=== PATIENT | male | born 1940 | race Caucasian/White ===

== ENCOUNTER 2016-05-10 07:36 | Emergency (ER) | payer MEDICARE ==
[2016-05-10] MEDS ORDERED: Lidocaine 2% JELLY* 6 ML JELLY TOPICAL ONE ×2 (08:28→08:50)
--- NOTE | 2016-05-10 08:37 | ED ---
GI/ HPI - HPI Summary HPI Summary: Patient presents with the inability to urinate for 5 hours. He is followed by Dr. Saldivar for several urinary issues, including retention. He last urinated early this AM and even then felt he had not completely emptied his bladder. He does not have pain, fever, N/V/D, abdominal or back pain. He currently uses Flomax as per Dr. Saldivar's instruction. - History of Current Complaint Chief Complaint: EDUrogenitalProblems Time Seen by Provider: 05/10/16 07:57 Stated Complaint: POSSIBLE UTI Hx Obtained From: Patient, Family/Family Member Caretaker Onset/Duration: Started Hours Ago Timing: Constant Severity: Moderate Current Severity: Moderate Pain Intensity: 4 Location of Pain: None Aggravating Factor(s): Nothing Alleviating Factor(s): Nothing - Allergy/Home Medications Allergies/Adverse Reactions: Allergies Allergy/AdvReac Type Severity Reaction Status Date / Time No Known Allergies Allergy Verified 05/10/16 07:43 PMH/Surg Hx/FS Hx/Imm Hx Endocrine/Hematology History: Reports: Hx Anticoagulant Therapy Denies: Hx Diabetes Cardiovascular History: Reports: Hx Congestive Heart Failure, Hx Coronary Artery Disease, Hx Hypercholesterolemia, Hx Hypertension Respiratory History: Reports: Hx Chronic Obstructive Pulmonary Disease (COPD) GI History: Reports: Hx Ulcer, Other GI Disorders - exploratory laparotomy with perf colon Musculoskeletal History: Reports: Hx Arthritis, Other Musculoskeletal History - left knee replacement Sensory History: Reports: Hx Contacts or Glasses Opthamlomology History: Reports: Hx Contacts or Glasses - Surgical History Surgery Procedure, Year, and Place: left knee replacemenet, CABG x4, exploratory laparotomy, lysis of adhesions, cholecystectomy, Vidal patch repair of pyloric ulcer Hx Anesthesia Reactions: No Infectious Disease History: Denies: Traveled Outside the [place] in Last 30 Days - Family History Known Family History: Positive: Cardiac Disease, Hypertension - Social History Occupation: Retired Lives: With Family Alcohol Use: None Substance Use Type: Reports: None Hx Tobacco Use: Yes Smoking Status (MU): Former Smoker Review of Systems Negative: Fever, Chills Negative: Abdominal Pain Positive: other - retention Negative: Headache All Other Systems Reviewed And Are Negative: Yes Physical Exam Triage Information Reviewed: Yes Vital Signs On Initial Exam: Initial Vitals Temp Pulse Resp BP Pulse Ox 96.7 F 98 16 157/93 97 05/10/16 07:38 05/10/16 07:38 05/10/16 07:38 05/10/16 07:38 05/10/16 07:38 Vital Signs Reviewed: Yes Appearance: Positive: Well-Appearing, No Pain Distress, Well-Nourished Skin: Positive: Warm, Skin Color Reflects Adequate Perfusion, Dry, Soft Head/Face: Positive: Normal Head/Face Inspection Eyes: Positive: EOMI, CÉSAR, Conjunctiva Clear ENT: Positive: Hearing grossly normal Respiratory/Lung Sounds: Positive: Clear to Auscultation, Breath Sounds Present Cardiovascular: Positive: RRR Abdomen Description: Positive: Nontender, Soft. Negative: CVA Tenderness (R), CVA Tenderness (L), Distended, Guarding Bowel Sounds: Positive: Present Musculoskeletal: Negative: Edema Left, Edema Right Neurological: Positive: Sensory/Motor Intact, Alert, Oriented to Person Place, Time, NV Bundle Intact Distally Psychiatric: Positive: Affect/Mood Appropriate AVPU Assessment: Alert - [place] Coma Scale Coma Scale Total: 15 Diagnostics - Vital Signs Vital Signs Temp Pulse Resp BP Pulse Ox 05/10/16 07:38 96.7 F 98 16 157/93 97 - Laboratory Lab Statement: Any lab studies that have been ordered have been reviewed, and results considered in the medical decision making process. Re-Evaluation - Re-Evaluation First Eval Re-Evaluation Time: 09:30 Change: Unchanged Comment: Nursing unable to establish urinary catheter due to phimosis of foreskin. Foreskin was penetrated and purulent drainage was noted. Second Eval Re-Evaluation Time: 10:00 Change: Unchanged Comment: A second nurse attempted urinary catheter placement without results. Dr. Fuller was contacted and will see the patient in the ED. Third Eval Re-Evaluation Time: 11:15 Change: Unchanged Comment: Patient resting comfortably awaiting Dr. Fuller. Fourth Eval Re-Evaluation Time: 11:45 Change: Improved Comment: Dr. Fuller was able to insert urinary catheter. GIGU Course/Dx - Course Course Of Treatment: A bladder scar revealed 300cc of retained urine. A doherty catheter will be placed for discharge home. Patient has an appointment with Dr. Saldivar already in place in two days, at which he can discuss this current situation. - Diagnoses Differential Diagnoses - Male: Bladder Dysfunction, Cystitis, Epididymitis, Prostatitis, Sepsis, Ureteral Calculi, Urethritis, Urinary Tract Infection Provider Diagnoses: Acute urinary retention - Physician Notifications Discussed Care Of Patient With: Dr. Fuller, urologist Time Discussed With Above Provider: 10:00 Discharge - Discharge Plan Condition: Stable Disposition: HOME Patient Education Materials: Urinary Retention in Men (ED), Doherty Catheter Placement and Care (ED) Referrals: Cachorro Benjamin MD [Primary Care Provider] - Mingo Saldivar MD [Medical Doctor] - Additional Instructions: Please continue using your Flomax and keep your catheter clean and in place. Take the one Cipro 500mg dose tomorrow morning. Because antibiotics can increase the effects of Warfarin, please contact the provider that manages your dosing KERRIE for guidance. Follow-up with Dr. Saldivar as scheduled on Thursday. Return to the emergency department if symptoms worsen.
[2016-05-10] MEDS ORDERED: Ciprofloxacin TAB* 500 MG PO ONE ×2 (10:11→11:47)
[2016-05-10 10:15] LABS: Urine Bacteria Absent (Absent); Urine Bilirubin Negative (Negative); Urine Glucose Negative (Negative); Urine Nitrite Negative (Negative)
[2016-05-10 12:19] LABS: Urine Bilirubin Negative (Negative); Urine Glucose Negative (Negative); Urine Nitrite Negative (Negative)
[2016-05-10 12:39] VITALS: BP 148/102
== END 2016-05-10 12:37 | disposition home or self-care (01) ==
LOC: ED 07:36
DX: R33.9 Retention of urine, unspecified (principal); Z87.891 Personal history of nicotine dependence
CPT/HCPCS: 81003; 81015; 87086; 99282; A9270-GY

== ENCOUNTER 2016-10-08 16:31 | Emergency (ER) | payer MEDICARE ==
[2016-10-08 16:52] VITALS: BP 133/79
--- NOTE | 2016-10-08 19:01 | ED ---
Laceration/Wound HPI - HPI Summary HPI Summary: 76 male presents with complaints of a right lower leg laceration after having it get caught in a truck door just prior to arrival. Patient is on Coumadin. Bleeding is oozing and under control at time of visit. Denies any pain, numbness and tingling. Able to bear weight. Unknown last tetanus. No other complaints of injuries. Denies dizziness, lightheadedness and weakness. Is currently bandaged. - History of Current Complaint Stated Complaint: LEG LAC FOR CAR DOOR Time Seen by Provider: 10/08/16 18:22 Hx Obtained From: Patient Onset/Duration: Sudden Onset Aggravating: Movement Alleviating: Compression Onset Severity: Mild Current Severity: None Pain Intensity: 0 Pain Scale Used: 0-10 Numeric Associated Signs & Symptoms: Negative Related Hx: Anticoagulat Use - Allergy/Home Medications Allergies/Adverse Reactions: Allergies Allergy/AdvReac Type Severity Reaction Status Date / Time No Known Allergies Allergy Verified 05/10/16 07:43 PMH/Surg Hx/FS Hx/Imm Hx Endocrine/Hematology History: Reports: Hx Anticoagulant Therapy Denies: Hx Diabetes Cardiovascular History: Reports: Hx Congestive Heart Failure, Hx Coronary Artery Disease, Hx Hypercholesterolemia, Hx Hypertension Respiratory History: Reports: Hx Chronic Obstructive Pulmonary Disease (COPD) GI History: Reports: Hx Ulcer, Other GI Disorders - exploratory laparotomy with perf colon Musculoskeletal History: Reports: Hx Arthritis, Other Musculoskeletal History - left knee replacement Sensory History: Reports: Hx Contacts or Glasses Opthamlomology History: Reports: Hx Contacts or Glasses - Surgical History Surgery Procedure, Year, and Place: left knee replacemenet, CABG x4, exploratory laparotomy, lysis of adhesions, cholecystectomy, Vidal patch repair of pyloric ulcer Hx Anesthesia Reactions: No - Immunization History Date of Tetanus Vaccine: unknown, will update today 10/08/16 Immunizations Up to Date: Yes Infectious Disease History: No Infectious Disease History: Denies: Traveled Outside the [place] in Last 30 Days - Family History Known Family History: Positive: Cardiac Disease, Hypertension - Social History Alcohol Use: None Substance Use Type: Reports: None Hx Tobacco Use: Yes Smoking Status (MU): Current Every Day Smoker Review of Systems Constitutional: Negative Cardiovascular: Negative Respiratory: Negative Musculoskeletal: Negative Positive: Other - laceration Neurological: Negative All Other Systems Reviewed And Are Negative: Yes Physical Exam Triage Information Reviewed: Yes Vital Signs On Initial Exam: Initial Vitals Temp Pulse Resp BP Pulse Ox 98.0 F 85 16 133/79 94 10/08/16 16:45 10/08/16 16:45 10/08/16 16:45 10/08/16 16:45 10/08/16 16:45 Vital Signs Reviewed: Yes Appearance: Positive: Well-Appearing, No Pain Distress, Well-Nourished Skin: Positive: Warm, Skin Color Reflects Adequate Perfusion, Dry, Other - skin avulsion triangle in shape approximately 6cm total of lateral right lower leg, bleeding minimal/oozing when manipulated. no other sign of laceration. not deep , superficial epidermal later, just skin.. Negative: Cold, Numb, Cyanosis @, Pale Head/Face: Positive: Normal Head/Face Inspection Eyes: Positive: Conjunctiva Clear ENT: Positive: Hearing grossly normal Neck: Positive: Supple, Nontender Respiratory/Lung Sounds: Positive: Clear to Auscultation, Breath Sounds Present. Negative: Rales, Rhonchi, Wheezes Cardiovascular: Positive: Normal, RRR, Pulses are Symmetrical in both Upper and Lower Extremities - 2+. Negative: Murmur, Rub Musculoskeletal: Positive: Normal, Strength/ROM Intact. Negative: Pain @ Neurological: Positive: Normal, Sensory/Motor Intact - sensation intact, Alert, Oriented to Person Place, Time, CN Intact II-III, Reflexes Intact, NV Bundle Intact Distally, Normal Gait Psychiatric: Positive: Affect/Mood Appropriate Procedures - Laceration/Wound Repair 1 Location: lower extremity - lateral right lower leg Description: Irregular - skin avulsion/flap v shape Length, Depth and Shape: v shape, skin avulsion superficial epidermal layer, only skin involvment Laceration/Wound Explored: clean, no foreign body removed Closure: Skin Adhesive - xeroform Sterile Dressing Applied?: Yes - pressure dressing, telfa, gauze, kerlex, coband after xeroform Diagnostics - Vital Signs Vital Signs Temp Pulse Resp BP Pulse Ox 10/08/16 18:44 98.4 F 85 18 133/79 98 10/08/16 16:45 98.0 F 85 16 133/79 94 - Laboratory Result Diagrams: 10/08/16 19:38 10/08/16 19:38 Lab Statement: Any lab studies that have been ordered have been reviewed, and results considered in the medical decision making process. Laceration Repair Course/Dx - Course Course Of Treatment: skin avulsion was dressed wtih xeroform and pressure dressing. unable to suture due skin avulsion. bleeding controlled. aware of worsening signs and symptoms. labs obtained due to coumadin and patient asking to have it checked instead of going tomorrow. normal range. keep dressing applied and re-dress after 48 hours or if bleeding re-occurs. Follow up PCP. watch for signs of infection. tetanus updated while in ED. imaging not necessary at this time. - Differential Dx Differental Diagnoses: Abrasion, Avulsion, Hematoma, Laceration - Clinical Impression Provider Diagnoses: Avulsion of skin of right lower leg, On anticoagulant therapy Discharge - Discharge Plan Condition: Stable Disposition: HOME Patient Education Materials: Skin Avulsion (ED) Referrals: Cachorro Benjamin MD [Primary Care Provider] - Additional Instructions: Do not get dressing wet for 48 hours, do not remove dressing for 48 hours. Unless re-bleeding occurs. After removal re-apply dressing as instructed. Watch for signs of infection or uncontrolled bleeding. If you start to feel dizzy or lightheaded please seek medical attention immediately. Keep clean and dry. Elevate and keep compression with dressing. Follow up with PCP.
[2016-10-08] MEDS ORDERED: Tetan/Diph/Pertus SYR(Tdap)* 0.5 ML SYR(BOOSTRIX) use SYR IM ONE (19:24)
[2016-10-08 19:49] LABS: Hematocrit 55 % (42-52); Mean Corpuscular HGB Conc 33 g/dl (31-36); Mean Corpuscular Hemoglobin 33 pg (27-31); Mean Corpuscular Volume 100 fL (80-94); Mean Platelet Volume 9 um3 (7.4-10.4); Red Blood Count 5.53 10^6/ul (4.0-5.4); Red Cell Distribution Width 16 % (10.5-15); White Blood Count 7.5 10^3/ul (3.5-10.8)
[2016-10-08 20:06] LABS: Albumin 4.1 g/dL (3.2-5.2); BUN/Creatinine Ratio 21.5 (8-20); Calcium 9.4 mg/dL (8.6-10.3); EGFR Non-African American 95.6 (>60); Globulin 3.5 g/dL (2-4); Potassium 4.3 mmol/L (3.5-5.0); Total Bilirubin 0.9 mg/dL (0.2-1.0); Total Protein 7.6 g/dL (6.4-8.9)
== END 2016-10-08 19:51 | disposition home or self-care (01) ==
LOC: ED 16:31
DX: S81.811A Laceration without foreign body, right lower leg, initial encounter (principal); X58.XXXA Exposure to other specified factors, initial encounter; Y93.89 Activity, other specified; Y92.9 Unspecified place or not applicable; F17.210 Nicotine dependence, cigarettes, uncomplicated; Z79.01 Long term (current) use of anticoagulants
CPT/HCPCS: 36415; 80053; 80074; 85025; 85610; 86703; 90471; 90715; 99282

== ENCOUNTER 2018-01-16 10:01 | Observation (INO) | payer MEDICARE ==
--- NOTE | 2018-01-16 10:32 | ED ---
Syncope/Near Syncope - HPI Summary HPI Summary: This patient is a 77 year old M presenting to [facility] accompanied by his with a chief complaint of 2 episodes of syncope since just [employer]. 1.5 years ago ICD implanted for PMHx AFib. Today, the first episode occured as he was walking into the [place], and he collapsed with LOC, and awoke on the ground. A second episode occurred as he was walking outside back to his car soon afterwards. He denies cough or recent illness. The pt notes he felt his ICD go off before his second collapse, but there was no shock from it prior to his first fall. He endorses numerous wounds on his extremities secondary to his fall (s). He endorses bruising easily. Rx warfarin. Pt ate this AM. Denies PMHx DM. - History Of Current Complaint Chief Complaint: EDSyncope Hx Obtained From: Patient, Family/Satin Finisher Onset/Duration: Sudden Onset, Lasting Minutes Timing: Intermittent Episode Lasting - seconds Context: Witnessed, Loss Of Consciousness Activity At Onset: At Rest Associated Head Trauma: No Aggravating Factor(s): Nothing Alleviating Factor(s): Nothing Associated Signs And Symptoms: Palpitations, Other - NEGATIVE: cough, recent illness Frequency: Episodes x___ - 2 - Allergies/Home Medications Allergies/Adverse Reactions: Allergies Allergy/AdvReac Type Severity Reaction Status Date / Time No Known Allergies Allergy Verified 01/16/18 10:08 PMH/Surg Hx/FS Hx/Imm Hx Endocrine/Hematology History: Reports: Hx Anticoagulant Therapy Denies: Hx Diabetes Cardiovascular History: Reports: Hx Congestive Heart Failure, Hx Coronary Artery Disease, Hx Hypercholesterolemia, Hx Hypertension, Hx Pacemaker/ICD Respiratory History: Reports: Hx Chronic Obstructive Pulmonary Disease (COPD) GI History: Reports: Hx Ulcer, Other GI Disorders - exploratory laparotomy with perf colon Musculoskeletal History: Reports: Hx Arthritis, Other Musculoskeletal History - left knee replacement Sensory History: Reports: Hx Contacts or Glasses Denies: Hx Deafness Opthamlomology History: Reports: Hx Contacts or Glasses EENT History: Denies: Hx Deafness Psychiatric History: Denies: Hx Autism - Surgical History Surgery Procedure, Year, and Place: left knee replacemenet, CABG x4, exploratory laparotomy, lysis of adhesions, cholecystectomy, Vidal patch repair of pyloric ulcer Hx Anesthesia Reactions: No - Immunization History Date of Tetanus Vaccine: unknown, will update today 10/08/16 Infectious Disease History: No Infectious Disease History: Denies: Traveled Outside the [place] in Last 30 Days - Family History Known Family History: Positive: Cardiac Disease, Hypertension - Social History Occupation: Retired Lives: With Family Alcohol Use: None Substance Use Type: Reports: None Hx Tobacco Use: Yes Smoking Status (MU): Current Every Day Smoker Review of Systems Negative: Fever Positive: Palpitations Negative: Cough Positive: no symptoms reported Positive: Bruising - bruises easily, Other - numerous extremity wounds secondary to fall Positive: Syncope All Other Systems Reviewed And Are Negative: Yes Physical Exam - Summary Physical Exam Summary: Appearance: The patient is well-nourished in no acute distress and in no acute pain. Skin: The skin is warm and dry and skin color reflects adequate perfusion. Skin tears in multiple places. HEENT: The head is normocephalic and atraumatic. The pupils are equal and reactive. The conjunctivae are clear and without drainage. Nares are patent and without drainage. Mouth reveals moist mucous membranes and the throat is without erythema and exudate. The external ears are intact. The ear canals are patent and without drainage. The tympanic membranes are intact. Neck: The neck is supple with full range of motion and non-tender. There are no carotid bruits. There is no neck vein distension. Respiratory: Chest is non-tender. Lungs are clear to auscultation. Breath sounds are diminished. Cardiovascular: Heart is Tachycardic and irregular. There is no murmur or rub auscultated. There is no peripheral edema and pulses are symmetrical and equal. Abdomen: The abdomen is soft and non-tender. There are normal bowel sounds heard in all four quadrants and there is no organomegaly palpated. Musculoskeletal: There is no back tenderness noted. Extremities are non-tender with full range of motion. There is good capillary refill. There is no peripheral edema or calf tenderness elicited. Neurological: Patient is alert and oriented to person, place and time. The patient has symmetrical motor strength in all four extremities. Cranial nerves are grossly intact. Deep tendon reflexes are symmetrical and equal in all four extremities. Psychiatric: The patient has an appropriate affect and does not exhibit any anxiety or depression. Triage Information Reviewed: Yes Vital Signs On Initial Exam: Initial Vitals Temp Pulse Resp BP Pulse Ox 96.7 F 35 16 162/88 89 01/16/18 10:07 01/16/18 10:07 01/16/18 10:07 01/16/18 10:07 01/16/18 10:07 Vital Signs Reviewed: Yes Diagnostics - Vital Signs Vital Signs Temp Pulse Resp BP Pulse Ox 01/16/18 10:07 96.7 F 35 16 162/88 89 - Laboratory Result Diagrams: 01/16/18 10:37 01/17/18 05:07 Lab Statement: Any lab studies that have been ordered have been reviewed, and results considered in the medical decision making process. - Radiology CXR Radiology Interpretation Completed By: Radiologist Summary of Radiographic Findings: 1. Cardiomegaly. 2. Hyperinflation is suggestive of COPD. Dr. Marrero has reviewed this report. - EKG 1032 Cardiac Rate: Tachycardia - 112 EKG Rhythm: Atrial Fibrillation - with RVR ST Segment: Non-Specific Ectopy: PVCs Summary of EKG Findings: Atrial fibrillation with RVR, no STEMI. Re-Evaluation - Re-Evaluation First Eval Re-Evaluation Time: 10:51 Change: Unchanged Comment: Per JESSICA Sharpe, the pt notes that he has not been able to take his digoxin for the past couple days as he had run out recently. Course/Dx Course Of Treatment: Mr. Greenfield was out and about today when he had a sudden syncopal episode which was not preceded by any symptoms. He does not recall the event only landing on the ground. He felt fine subsequently and he went back to his car where his ICD went off. This requires very clearly, this is the first time this is happened. He has had the ICD about 2 years. He was apparently placed because he has a history of chronic atrial fibrillation. He is taking digoxin for this however has not taken any for a couple of days because of an insurance issue. Labs were sent and he was kept on a monitor here. His vitals were stable and he was nontoxic in appearance. I spoke with Dr. Pritchett with the expectation that he has had rapid atrial fibrillation causing the syncope and the defibrillation. His labs returned okay, but when I interrogated the ICD it revealed V. tach. The hospitalist were contacted for admission. - Diagnoses Provider Diagnoses: Ventricular tachycardia, Syncope - Physician Notifications Discussed Care of Patient With: Kirstin Sherman Time Discussed With Above Provider: 12:59 Instructed by Provider To: Other - accepts admission - Critical Care Time Critical Care Time: 30-74 min Discharge - Sign-Out/Discharge Documenting (check all that apply): Patient Departure - admit - Discharge Plan Condition: Fair Disposition: ADMITTED TO [facility] - Billing Disposition and Condition Condition: FAIR Disposition: Admitted to [facility] - Attestation Statements Document Initiated by Scribe: Yes Documenting Scribe: Mario Savage Provider For Whom Scribe is Documenting (Include Credential): Dr. Abel Marrero MD Scribe Attestation: Mario Shaw scribed for Dr. Abel Marrero MD on 01/17/18 at 1907. Scribe Documentation Reviewed: Yes Provider Attestation: The documentation as recorded by the Mario gibson accurately reflects the service I personally performed and the decisions made by me, Dr. Abel Marrero MD
[2018-01-16 10:43] LABS: ABS Basophils 0.1 10^3/ul (0-0.2); ABS Eosinophils 0.3 10^3/ul (0-0.6); ABS Lymphocytes 0.9 10^3/ul (1.0-4.8); ABS Monocytes 0.9 10^3/ul (0-0.8); ABS Neutrophils 6.1 10^3/ul (1.5-7.7); ABS Nucleated RBC 0 10^3/ul; Eosinophil % 3.6 % (0-6); Hematocrit 55 % (42-52); Hemoglobin 18.7 g/dl (14.0-18.0); Lymphocyte % 10.8 % (25-47); Mean Corpuscular HGB Conc 34 g/dl (31-36); Mean Corpuscular Hemoglobin 33 pg (27-31); Mean Corpuscular Volume 98 fL (80-94); Mean Platelet Volume 8.9 fL (7.4-10.4); Nucleated Red Blood Cells % 0; Platelet Count 139 10^3/ul (150-450); Red Blood Count 5.62 10^6/ul (4.00-5.40); Red Cell Distribution Width 15 % (10.5-15); White Blood Count 8.3 10^3/ul (3.5-10.8)
[2018-01-16 10:54] LABS: INR 2.74 (0.77-1.02)
[2018-01-16 11:02] LABS: EGFR Non-African American 87.6 (>60)
[2018-01-16] MEDS ORDERED: Digoxin IV* 0.5 MG/2 ML AMP (0.25 MG/ML) IV SLOW PU ONE (11:26)
[2018-01-16 12:12] LABS: Urine Appearance Cloudy; Urine Blood Negative (Negative); Urine Color Yellow; Urine Ketones Negative (Negative); Urine Protein 2+(100 mg/dL) (Negative); Urine Red Blood Cell Absent (Absent); Urine Specific Gravity 1.018 (1.010-1.030); Urine Urobilinogen Negative (Negative); Urine White Blood Cell Absent (Absent)
[2018-01-16] MEDS ORDERED: Magnesium Sulfate IV* 3 GM in NS 0.9% 100 ML* 100 ML IVPB ONE (13:22)
[2018-01-16] MEDS ORDERED: Acetaminophen TAB* 325 MG PO PRN (13:29)
[2018-01-16] MEDS ORDERED: NS 0.9% 100 ML* 100 ML ONE (14:55)
[2018-01-16] MEDS ORDERED: Warfarin TAB(*) 3 MG PO SCH (17:00)
[2018-01-16] MEDS: Digoxin TAB* 0.125 MG PO SCH (17:44)
--- NOTE | 2018-01-16 19:35 | HP ---
CC: Dr. Benjamin; Dr. Bear * HOSPITAL MEDICINE HISTORY AND PHYSICAL: DATE OF ADMISSION: 01/16/18 PRIMARY CARE PHYSICIAN: Dr. Benjamin. SPINNER IRON: Dr. Bear. ATTENDING PHYSICIAN: Kirstin Sherman DO * (dictation provided by Maria Eugenia Carmona NP ) CHIEF COMPLAINT: Syncope with shock of ICD. HISTORY OF PRESENT ILLNESS: Mr. Greenfield is a 77-year-old male with a past medical history of coronary artery disease with CABG in 2016 and atrial fibrillation, on warfarin, who presents to the hospital today with concern for syncope followed by a firing of his ICD. Mr. Greenfield states that he has been in his normal state of health with no acute complaints. 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 He had no prodromal symptoms and woke immediately. He got up and was headed on to his car and on arriving there, his ICD fired. The patient states he only felt the shock once and presented to the emergency room for evaluation. He denies any recent chest pain. He denies shortness of breath. He has had no fever, chills, cough. He denies nausea, vomiting, diarrhea, abdominal pain. In the emergency room, Mr. Greenfield was found to have labs that were unremarkable. His troponin was 0.01, BNP 103. BUN and creatinine normal. Electrolytes normal except for magnesium that is slightly low at 1.7. His digoxin level is low at 0.5 and the patient does endorse missing 2 doses of digoxin at home. His EKG shows T-wave inversions in avf, 2, 3 and V5, V6. Chest x-ray is normal. The patient had a pacemaker interrogation, which showed that he had V- tach x3 with firing of his ICD x2 and 1 firing that did not capture. PAST MEDICAL HISTORY: 1. Atrial fibrillation, on warfarin. 2. Coronary artery disease with CABG x3 approximately 8 years ago. 3. Chronic systolic CHF, EF 30%. 4. Hypothyroidism. 5. Hypertension. 6. Hyperlipidemia. 7. History of perforated ulcer in 2014. 8. Placement of ICD. MEDICATIONS: 1. Warfarin 3 mg every day, but Thursday and Thursday at which time he takes 4.5 mg. 2. Aspirin 81 mg p.o. daily. 3. Lisinopril 20 mg p.o. daily. 4. Metoprolol succinate 12.5 mg p.o. b.i.d. 5. Furosemide 40 mg p.o. daily. 6. Digoxin 0.125 mg p.o. daily. 7. Omeprazole 20 mg a day. 8. Potassium chloride 20 mEq p.o. every other day. 9. Pravastatin 20 mg p.o. at bedtime. ALLERGIES: No known drug allergies. FAMILY HISTORY: The patient's father related to an ID at age 70. Mother related to ID at age 75. SOCIAL HISTORY: The patient is a continued smoker, smoking about half a pack of cigarettes a day and a report of rare alcohol use. No report of drug use. He lives with his who is his healthcare proxy. REVIEW OF SYSTEMS: A 14-point review of systems was completed with Mr. Greenfield and all those not mentioned above were negative. PHYSICAL EXAMINATION GENERAL: Mr. Greenfield is lying in the bed with his at the bedside. He is in no acute distress. VITAL SIGNS: Temperature 96.7, pulse rate 92, respiratory rate 25, O2 saturation 94% on room air, blood pressure 136/84. LUNGS: Clear to auscultation bilaterally with no accessory muscle use and good aeration. HEART: S1, S2. No murmur, rub, or gallop and regular. ABDOMEN: Soft, nontender with bowel sounds positive x4. EXTREMITIES: No cyanosis or edema. NEURO: He is alert. He is oriented x3. He moves all extremities equally. There is no facial asymmetry or focal weakness. Extraocular movements are intact. SKIN: Intact. LABORATORY DATA/DIAGNOSTIC STUDIES: WBC 8.3, hemoglobin 18.7, hematocrit 55, platelet count 139,000. INR 2.74. Sodium 141, potassium 4.4, chloride 104, serum bicarbonate 29, BUN 17, creatinine 0.85, glucose 100. Lactic acid 2.0. Magnesium 1.7. Troponin 0.01. BNP 103. TSH 4.49. Urine shows no evidence of infection. Digoxin level is low at 0.5. Chest x-ray shows cardiomegaly with hyperinflation suggestive of COPD. The EKG again shows atrial fibrillation with inversion of T waves in aVF, 2, 3, and V5, V6, which are new. ASSESSMENT AND PLAN: Mr. Greenfield is a 77-year-old male with a past medical history of coronary artery disease with ischemic cardiomyopathy and last known ejection fraction is 30% with ICD placement as well as atrial fibrillation, on chronic warfarin therapy who presents today to the hospital after having an episode of syncope followed by a firing of his ICD, pacemaker interrogation in the ED, which revealed that he had 3 episodes of ventricular tachycardia with 3 firings of the ICD, although 1 did not capture. Our plans are for observation in the hospital for the followin. Ventricular tachycardia: Appreciate the consultation from Dr. Pritchett who will be seeing the patient today. He has recommended that the patient start amiodarone 400 mg p.o. b.i.d. and that he continue on his home digoxin. He will also continue on his rate control agent metoprolol. He will continue on telemetry monitoring. The patient's potassium is normal and well repleted, but we will replete magnesium with a goal of 2.0. 2. History of chronic systolic congestive heart failure. Plan to continue home medications. No evidence of acute exacerbation. 3. Atrial fibrillation. Continue warfarin. 4. Code status is DNR and MOLST form has been completed with the patient with his at the bedside. TIME SPENT: Approximately 60 minutes were spent on the admission of this patient, more than half of the time was spent with the patient at the bedside reviewing the events leading up to this hospitalization, performing the physical examination and reviewing my plan of care. MARIA EUGENIA CARMONA NP [id number]/[facility] #: [id number] SHAZIA
[2018-01-16] MEDS: Amiodarone TAB* 400 MG PO SCH (20:13)
[2018-01-16] MEDS: Metoprolol Succinate XL TAB* 25 MG PO SCH (20:15)
[2018-01-16] MEDS ORDERED: Carvedilol TAB* 6.25 MG PO SCH (21:00)
--- NOTE | 2018-01-16 23:29 | CONS ---
CC: Dr. Zechariah Bear; Dr. Cachorro Benjamin CARDIOLOGY CONSULTATION: DATE OF CONSULT: 01/16/18 REFERRAL PROVIDER: Ms. Maria Eugenia Carmona of the [facility] medicine service REASON FOR CARDIOLOGY CONSULT: ICD discharge in a patient with severe ischemic cardiomyopathy and VT/VF. HISTORY OF PRESENT ILLNESS: Mr. Greenfield apparently ran out of his digoxin several days ago. In any case today, he was walking. had syncope and felt his ICD discharge. Interrogation of his Medtronic ICD today shows single-chamber ICD with appropriate discharge for VT/VF. Currently, the patient has no cardiac complaints. He has not had any recent angina and walks with a walker. PAST MEDICAL HISTORY: Includes severe ischemic cardiomyopathy. Echocardiogram , 06/19/15, showed ejection fraction of 30% with moderate aortic stenosis. Of note, he follows with my partner, Dr. Zechariah Bear. On 02/20/10, the patient had a cardiac chemical nuclear stress test, which showed inferior infarction with adriana- infarct ischemia. The patient had a CABG on 09/27/09 with ROUSSEAU to the LAD placed, vein graft to the OM, vein graft to the RCA, mitral valve repair , maze procedure, and left atrial appendage ligation at that time. Other past medical history includes GERD; ongoing tobacco abuse; chronic atrial fibrillation, on Coumadin; hypothyroidism; hypertension; hyperlipidemia; history of perforated ulcer in 2014; Medtronic ICD placement as above. OUTPATIENT MEDICATIONS: 1. Coumadin as directed. 2. Aspirin 81 mg once a day. 3. Lisinopril 20 mg once a day. 4. Toprol-XL 12.5 mg p.o. b.i.d. 5. Lasix 40 mg once a day. 6. Digoxin 0.125 mg once a day, although it seems that the patient ran out of this medicine for several days and he is unsure of that. 7. Omeprazole 20 mg once a day. 8. Potassium chloride 20 mEq p.o. q.o.d. 9. Pravastatin. ALLERGIES TO MEDICATIONS: None. He denies shrimp, seafood, or dye allergy. FAMILY HISTORY: His father of an AZ at the age of 70. There is no family history of stroke, cancer, or diabetes. SOCIAL HISTORY: The patient has been x3 and lives with his girlfriend. He smokes half pack per day, which he has remained for 40 years or so. He does not drink caffeine, use alcohol. No use of illicit drugs. 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 He does try to stay active as he walks with his walker. REVIEW OF SYSTEMS: The patient denies personal history of stroke, cancer, vomiting up blood, coughing up blood, bright red blood per rectum, bleeding stomach ulcers. He has had a history of renal calculi and cholelithiasis. He denies asthma, emphysema, pneumonia, tuberculosis, sleep apnea, home oxygen use , diabetes. He has a history of hypertension. Denies prior AZ. He has had prior bypass surgery. He believes he has a heart murmur. He denies lupus, psoriasis, seizures, Parkinson's disease, myasthenia gravis, liver disorders, kidney disorders, claudication symptoms, pulmonary emboli, deep venous thrombosis, peripheral arterial disease. He does note some positional edema when he is on his feet for some time. He denies heartburn symptoms. All other review of systems negative x14 except as described above. PHYSICAL EXAM: Height 6 feet 2 inches, weight 223 pounds. Temperature 98.4 degrees Fahrenheit, blood pressure 132/75 with pulse of 92 to 53, O2 saturation 96%. On general exam, he is a pleasant gentleman, in no acute distress. HEENT : Shows the cranium is normocephalic and atraumatic. He has moist mucosal membranes. Neck veins are not distended. There are no carotid bruits. Visible skin warm and perfused. Affect appropriate. He appears oriented. No significant kyphoscoliosis on recumbent back exam. Lungs are clear to auscultation anteriorly. No wheezes or rales. Cardiac Exam: S1, S2. Regular rate. Soft holosystolic ejection murmur heard without radiation. There is no murmur, rub, or gallop. PMI is difficult to palpate. Abdomen: Soft, nondistended, appears benign. Extremities: With no more than trivial peripheral edema with some brawny changes. Pulses appear grossly intact. DIAGNOSTIC STUDIES/LAB DATA: White blood cell count 8.3, hematocrit 55, platelet count 139. Per chart review INR 2.74. Sodium 141, potassium 4.4, chloride 104, bicarbonate 29, BUN 17, creatinine 0.85. Troponin 0.01. Magnesium 1.7. Digoxin level low at 0.5. The Medtronic Quick Look ICD interrogation completed today which shows that the single- chamber pacemaker ICD set in VVI mode, lower rate of 40, VF detection on at rates greater than 200 beats per minute with therapy of ATP followed by 35 joules x6. The patient had 2 episodes of VT/VF today with appropriate ICD discharge. The patient is V sensed 96.9% of the time, V paced 3.1% of the time. 12-lead EKG reviewed from 01/16/18 at 10:32 a.m., which shows atrial fibrillation with nonspecific IVCD, PVC versus Shane's phenomenon. Consider old anteroseptal infarct and lateral T-wave changes. IMPRESSION: Mr. Greenfield is a pleasant 77-year-old gentleman with history of severe ischemic cardiomyopathy, chronic atrial fibrillation, and implantable cardioverter- defibrillator placement. He has had appropriate implantable cardioverter- defibrillator discharge for pventricular tachycardia/ventricular fibrillation today per implantable cardioverter-defibrillator interrogation. We have added amiodarone to his medication regimen. RECOMMENDATIONS: 1. Continue amiodarone 400 mg p.o. b.i.d. and we will need to watch his thyroid function. If he does, however, have recurrent appropriate ICD discharges for VT/VF, we will change to an IV load of Amiodarone. 2. Keep magnesium greater than 2, potassium greater than 4. 3. Continue aspirin, digoxin, Lasix, lisinopril, Toprol-XL, Coumadin, statin therapy. Consider Aldactone as outpatient. 4. If the patient is VT free for the next 24 to 48 hours, by 01/18/18, I feel cardiac-soriano he should be stable for discharge. 5. The patient will follow up with his usual paint pourer, Dr. Bear, post discharge. Dear, Ms. Maria Eugenia Carmona, many thanks for asking me to participate in cardiovascular consultative care of Mr. Greenfield. Please do not hesitate to contact me if you have any questions or concerns regarding the patient's cardiovascular consultative care. [id number]/[facility] #: [id number] MTDD
[2018-01-17 06:03] LABS: EGFR Non-African American 123.8 (>60)
[2018-01-17] MEDS: Metoprolol Succinate XL TAB* 25 MG PO SCH ×2 (08:27→21:46)
[2018-01-17] MEDS: Lisinopril TAB* 10 MG PO SCH (08:27)
[2018-01-17] MEDS: Amiodarone TAB* 400 MG PO SCH ×2 (08:27→21:36)
[2018-01-17] MEDS: Aspirin 81 mg CHEW TAB* 81 MG TAB.CHEW PO SCH (08:28)
[2018-01-17] MEDS: Furosemide TAB* 40 MG PO SCH (08:28)
[2018-01-17] MEDS: Omeprazole CAP* 20 MG PO SCH (08:28)
--- NOTE | 2018-01-17 15:37 | PN ---
Subjective Date of Service: 01/17/18 Interval History: Mr. Greenfield feels well today. His is at bedside. He has not had any further ICD firing and reports that yesterday was the first time he experienced it. No palpitations. reports that patient was on amiodarone in the past, and she is not sure when or why he was taken off. He does report that he would like to quit smoking, and because he has been without a cigarette since being in the hospital, he feels as though he will be able to quit on his own. He may be interested in nicotine patches. He denies CP, SOB, N/V/D, dizziness. Family History: Unchanged from Admission Social History: Unchanged from Admission Past Medical History: Unchanged from Admission Objective Active Medications: Acetaminophen (Tylenol Tab*) 650 mg PO Q6H PRN Amiodarone HCl (Cordarone Tab*) 400 mg PO BID [facility] Aspirin (Aspirin 81 Mg Chew Tab*) 81 mg PO DAILY [facility] Digoxin (Lanoxin Tab*) 0.125 mg PO DAILY@1700 [facility] Furosemide (Lasix Tab*) 40 mg PO DAILY [facility] Lisinopril (Prinivil Tab*) 20 mg PO DAILY [facility] Metoprolol Succinate (Toprol Xl Tab*) 12.5 mg PO BID [facility] Omeprazole (Prilosec Cap*) 20 mg PO DAILY@0730 [facility] Potassium Chloride (Klor Con Er Tab*) 20 meq PO EVERY OTHER DAY [facility] Warfarin Sodium (Coumadin Tab(*)) 3 mg PO MoTuWeThSa@1700 [facility]; Protocol Warfarin Sodium (Coumadin Tab(*)) 4.5 mg PO SuFr@1700 [facility]; Protocol Vital Signs - 8 hr 01/17/18 08:19 Temperature 98.2 F Pulse Rate 98 Respiratory 18 Rate Blood Pressure 119/70 (mmHg) O2 Sat by Pulse 91 Oximetry Oxygen Devices in Use Now: None Appearance: Elderly male sitting in bed in NAD Eyes: No Scleral Icterus Ears/Nose/Mouth/Throat: Mucous Membranes Moist Neck: NL Appearance and Movements; NL JVP Respiratory: Symmetrical Chest Expansion and Respiratory Effort, Clear to Auscultation Cardiovascular: NL Sounds; No Murmurs; No JVD, RRR Abdominal: NL Sounds; No Tenderness; No Distention Extremities: No Edema Skin: No Rash or Ulcers Neurological: Alert and Oriented x 3 Lines/Tubes/Other Access: Clean, Dry and Intact Peripheral IV Nutrition: Taking PO's Result Diagrams: 01/16/18 10:37 01/17/18 05:07 Assess/Plan/Problems-Billing Assessment: Mr. Greenfield is a 77yo with PMH of afib on warfarin, CAD s/p CABG, systolic CHF w/ EF 30%, HTN, and HLD who presented to the ED after syncope and ICD firing. - Patient Problems (1) Ventricular tachycardia Current Visit: Yes Status: Acute Code(s): I47.2 - VENTRICULAR TACHYCARDIA SNOMED Code(s): 78994874 Comment: - Pacer interrogation reveals VT x3 with ICD firing x2, 1 firing that did not capture - Telemetry reveals 5 beats VT on 01/16/18 at 1600, though no ICD firing per patient (this was prior to first dose of amiodarone) - Appreciate cardiology consult - Continue amiodarone BID (2) Chronic systolic congestive heart failure Current Visit: Yes Status: Acute Code(s): I50.22 - CHRONIC SYSTOLIC ( CONGESTIVE) HEART FAILURE SNOMED Code(s): 234542581 Comment: - Not in exacerbation - Digoxin level subtherapeutic; likely r/t missing 2 doses prior to admission - Continue digoxin, lasix, lisinopril, metoprolol (3) Hypertension Current Visit: Yes Status: Acute Code(s): I10 - ESSENTIAL (PRIMARY) HYPERTENSION SNOMED Code(s): 82203265 Comment: - Normotensive - Continue medications as above (4) Atrial fibrillation Current Visit: Yes Status: Acute Code(s): I48.91 - UNSPECIFIED ATRIAL FIBRILLATION SNOMED Code(s): 09250097 Comment: - Continue warfarin and meds as above (5) DNR (do not resuscitate) Current Visit: Yes Status: Acute (6) DVT prophylaxis Current Visit: Yes Status: Acute Code(s): HDD5407 - SNOMED Code(s): 699770135 Comment: - Coumadin, goal INR 2-3 Status and Disposition: Observation. Per cardiology, if patient is VT free for 24-48 hours, he may be d/ c'd home on Thursday for plans to f/u with Dr. Bear.
[2018-01-17] MEDS ORDERED: Warfarin TAB(*) 3 MG PO SCH (17:00)
[2018-01-17] MEDS: Digoxin TAB* 0.125 MG PO SCH (17:02)
[2018-01-18 07:11] LABS: ABS Basophils 0.1 10^3/ul (0-0.2); ABS Eosinophils 0.3 10^3/ul (0-0.6); ABS Lymphocytes 1.1 10^3/ul (1.0-4.8); ABS Monocytes 0.8 10^3/ul (0-0.8); ABS Neutrophils 4.6 10^3/ul (1.5-7.7); ABS Nucleated RBC 0 10^3/ul; Eosinophil % 4.8 % (0-6); Hematocrit 52 % (42-52); Hemoglobin 17.4 g/dl (14.0-18.0); Lymphocyte % 15.2 % (25-47); Mean Corpuscular HGB Conc 34 g/dl (31-36); Mean Corpuscular Hemoglobin 33 pg (27-31); Mean Corpuscular Volume 99 fL (80-94); Mean Platelet Volume 9.1 fL (7.4-10.4); Nucleated Red Blood Cells % 0.1; Platelet Count 144 10^3/ul (150-450); Red Cell Distribution Width 16 % (10.5-15); White Blood Count 6.9 10^3/ul (3.5-10.8)
[2018-01-18 07:19] LABS: INR 3.28 (0.77-1.02)
[2018-01-18 07:51] LABS: EGFR Non-African American 96.8 (>60)
[2018-01-18] MEDS ORDERED: Magnesium Sulfate 2 GM IV* 2 GM/50 ML BAG IVPB ONE (08:33)
[2018-01-18] MEDS ORDERED: Potassium Chlor TAB* 20 MEQ TAB.ER PO SCH (09:00)
[2018-01-18] MEDS: Lisinopril TAB* 10 MG PO SCH (09:19)
[2018-01-18] MEDS: Metoprolol Succinate XL TAB* 25 MG PO SCH (09:20)
[2018-01-18] MEDS: Omeprazole CAP* 20 MG PO SCH (09:21)
[2018-01-18] MEDS: Aspirin 81 mg CHEW TAB* 81 MG TAB.CHEW PO SCH (09:21)
[2018-01-18] MEDS: Furosemide TAB* 40 MG PO SCH (09:21)
[2018-01-18] MEDS: Amiodarone TAB* 400 MG PO SCH (09:22)
--- NOTE | 2018-01-18 12:31 | PN ---
Subjective Date of Service: 01/18/18 Interval History: Pt sitting comfortably in bed eager to go home. Pt has been ambulating without difficulty. Does endorse some chest wall soreness since ICD shock, but no chest pain. No shortness of breath, dizziness, headache, dysuria, N/V/D/C. Family History: Unchanged from Admission Social History: Unchanged from Admission Past Medical History: Unchanged from Admission Objective Active Medications: Acetaminophen (Tylenol Tab*) 650 mg PO Q6H PRN PRN Reason: PAIN Amiodarone HCl (Cordarone Tab*) 400 mg PO BID [facility] Last Admin: 01/18/18 09:22 Dose: 400 mg Aspirin (Aspirin 81 Mg Chew Tab*) 81 mg PO DAILY [facility] Last Admin: 01/18/18 09:21 Dose: 81 mg Digoxin (Lanoxin Tab*) 0.125 mg PO DAILY@1700 [facility] Last Admin: 01/17/18 17:02 Dose: 0.125 mg Furosemide (Lasix Tab*) 40 mg PO DAILY [facility] Last Admin: 01/18/18 09:21 Dose: 40 mg Lisinopril (Prinivil Tab*) 20 mg PO DAILY [facility] Last Admin: 01/18/18 09:19 Dose: 20 mg Metoprolol Succinate (Toprol Xl Tab*) 12.5 mg PO BID [facility] Last Admin: 01/18/18 09:20 Dose: 12.5 mg Omeprazole (Prilosec Cap*) 20 mg PO DAILY@0730 [facility] Last Admin: 01/18/18 09:21 Dose: 20 mg Potassium Chloride (Klor Con Er Tab*) 20 meq PO EVERY OTHER DAY [facility] Last Admin: 01/18/18 09:21 Dose: 20 meq Warfarin Sodium (Coumadin Tab(*)) 3 mg PO MoTuWeThSa@1700 [facility]; Protocol Last Admin: 01/16/18 17:43 Dose: 3 mg Warfarin Sodium (Coumadin Tab(*)) 4.5 mg PO SuFr@1700 [facility]; Protocol Last Admin: 01/17/18 17:02 Dose: 4.5 mg Vital Signs - 8 hr 01/18/18 07:40 Temperature 97.8 F Pulse Rate 77 Respiratory 20 Rate Blood Pressure 108/61 (mmHg) O2 Sat by Pulse 92 Oximetry Oxygen Devices in Use Now: None Eyes: No Scleral Icterus, PERRLA Ears/Nose/Mouth/Throat: NL Teeth, Lips, Gums, Mucous Membranes Moist Neck: NL Appearance and Movements; NL JVP, Trachea Midline Respiratory: Symmetrical Chest Expansion and Respiratory Effort, Clear to Auscultation Cardiovascular: NL Sounds; No Murmurs; No JVD, RRR, No Edema Abdominal: NL Sounds; No Tenderness; No Distention Extremities: No Edema, No Clubbing, Cyanosis Skin: No Rash or Ulcers, No Nodules or Sclerosis Neurological: Alert and Oriented x 3 Result Diagrams: 01/18/18 06:54 01/18/18 06:54 Assess/Plan/Problems-Billing Assessment: Mr. Greenfield is a 77yo with PMH of afib on warfarin, CAD s/p CABG, systolic CHF w/ EF 30%, HTN, and HLD who presented to the ED after syncope and ICD firing. - Patient Problems (1) Ventricular tachycardia Status: Acute Code(s): I47.2 - VENTRICULAR TACHYCARDIA SNOMED Code(s): 80992305 Comment: - Pacer interrogation: VT x3 with ICD firing x2, 1 firing that did not capture - Pt's reports that he has missed multiple doses of his metoprolol, spironolactine and digoxin, and has let his medication supply run out before calling for refills - No additional episodes of VT on Tele after starting amiodarone - Cardiology following: started on amiodarone BID. Spoke with Dr. Roe, will discharge pt on amiodarone 400mg daily and follow up with Dr. Bear (2) Atrial fibrillation Status: Acute Code(s): I48.91 - UNSPECIFIED ATRIAL FIBRILLATION SNOMED Code( s): 83886174 Comment: - Anticoagulated with warfarin - Rate controlled with metoprolol and digoxin - Rhythm control with amiodarone (3) Chronic systolic congestive heart failure Status: Acute Code(s): I50.22 - CHRONIC SYSTOLIC (CONGESTIVE) HEART FAILURE SNOMED Code(s): 389269638 Comment: - No evidence of acute exacerbation - Digoxin level was subtherapeutic on admission likely r/t missing 2 doses prior to admission. also reports that he has missed doses of his other cardiac medications as well - Continue HF regimen of lisinopril, metoprolol, spironolactone, digoxin, lasix , (4) CAD (coronary artery disease) Status: Chronic Code(s): I25.10 - ATHSCL HEART DISEASE OF [place] CORONARY ARTERY W/O ANG PCTRS SNOMED Code(s): 94358104 Comment: - Continue aspirin and statin (5) DVT prophylaxis Status: Acute Code(s): WNE3864 - SNOMED Code(s): 203290271 Comment: - Coumadin (6) DNR (do not resuscitate) Status: Acute Status and Disposition: D/c home and follow up with Dr. Bear Attending: Inocente Lin
[2018-01-18 12:54] VITALS: BP 111/61
--- NOTE | 2018-01-19 08:56 | DS ---
CC: Dr. Cachorro Benjamin; Dr. Bear * DISCHARGE SUMMARY: DATE OF ADMISSION: 01/16/18 DATE OF DISCHARGE: 01/18/18 PROVIDER: Annemarie Heath NP ATTENDING PHYSICIAN: Dr. Lin * (dictated by Annemarie Heath NP) PRIMARY CARE PROVIDER: Dr. Cachorro Benjamin. SIMPLEX PRINTER INSTALLER: Dr. Bear. PRIMARY DIAGNOSIS: Ventricular tachycardia. SECONDARY DIAGNOSES: 1. History of atrial fibrillation, on warfarin. 2. Coronary artery disease, status post coronary artery bypass graft. 3. Chronic systolic heart failure with an ejection fraction of 30%. 4. Hypertension. 5. Hyperlipidemia. 6. Status post placement of implantable cardioverter-defibrillator after chronic systolic congestive heart failure with ejection fraction of 30%. DISCHARGE MEDICATIONS: 1. Spironolactone 25 mg p.o. daily. 2. Warfarin 4.5 mg on Thursday and Thursday; 3 mg on Thursday, Thursday, Thursday, and Thursday. 3. Aspirin 81 mg p.o. daily. 4. Lisinopril 20 mg p.o. daily. 5. Metoprolol succinate XL 12.5 mg p.o. b.i.d. 6. Furosemide 40 mg p.o. daily. 7. Digoxin 0.125 mg p.o. daily. 8. Omeprazole 20 mg p.o. daily. 9. Pravastatin 20 mg p.o. at bedtime. New Medication: 1. Amiodarone 400 mg p.o. daily. HOSPITAL COURSE: Mr. Greenfield is a 77-year-old male with the past medical history significant for coronary artery disease with CABG in 2016; A-fib, on warfarin; chronic systolic CHF with an EF of 30%, status post ICD placement, who presented to the ED after having an episode of syncope associated with the firing of his ICD. He had no prodromal symptoms. This incident occurred [place] Once he felt the shock, he came to the ED for further evaluation. He denied any chest pain, shortness of breath, fever , chills, cough, nausea, vomiting, diarrhea, and abdominal pain. His labs in the ED were unremarkable. He did have an EKG, which showed T-wave inversions in aVF, II, III, in V5 and V6. He had a chest x-ray, which was normal. The patient had a pacemaker interrogation, which showed that he had V-tach x3 with firing of his ICD x2 and 1 firing that did not capture. Also of note, the patient's mentions that he has missed multiple doses of his various cardiac medications including digoxin and metoprolol. She says that he will sometimes wait until he has no medication left before placing the call to get them refilled. The patient was evaluated by Dr. Pritchett in Cardiology. He recommended starting the patient on amiodarone 400 mg p.o. b.i.d. and continuing the patient's home digoxin as well as his home metoprolol. The patient was monitored on telemetry and did not have any further episodes of VT after the amiodarone was started. Today, at the time of my evaluation, the patient has no complaints. Denied chest pain, shortness of breath, palpitations , dizziness. I spoke with Dr. Roe today, who recommended sending the patient home on 400 mg of amiodarone daily with close followup from Dr. Bear, the patient's regular senior software engineer analytics. I also discussed at length with the patient the importance of taking his cardiac medications regularly. His mentioned that she recently purchased him a pill alvarez organizer with a.m. and p.m. slots for every day of the week and he feels that this will improve his compliance. I also counseled him extensively about the need to refill his prescriptions in a timely manner so as to keep his volume status under control and his heart rate under control. The patient did verbalize understanding of this and is not eager to experience a repeat of this episode. The patient will follow up with Dr. Bear as well as his primary care provider. DISPOSITION: Discharged to home. DIET: The patient should have a heart-healthy diet. ACTIVITY: Activity as tolerated. FOLLOWUP: The patient was instructed to follow up with his primary care provider, Dr. Benjamin, as well as his senior software engineer analytics, Dr. Bear, within the next week. TIME SPENT: Time spent for this discharge was 45 minutes. ANNEMARIE HEATH, JOJO [id number]/[facility] #: [id number] [facility]
== END 2018-01-18 13:35 | disposition home or self-care (01) ==
LOC: ED 10:01 → MEDTELE 13:19
PROVIDERS: ADMIT Hospitalist; ATTEND Internal Medicine
DX: I47.2 Ventricular tachycardia (principal); I48.91 Unspecified atrial fibrillation; Z79.01 Long term (current) use of anticoagulants; I50.22 Chronic systolic (congestive) heart failure; I25.10 Atherosclerotic heart disease of native coronary artery without angina pectoris; I10 Essential (primary) hypertension; E78.5 Hyperlipidemia, unspecified; Z95.810 Presence of automatic (implantable) cardiac defibrillator; Z79.82 Long term (current) use of aspirin; F17.210 Nicotine dependence, cigarettes, uncomplicated; R00.2 Palpitations
CPT/HCPCS: 36415; 70450; 71045; 80048; 80053; 80162; 81003; 81015; 83605; 83735; 83880; 84443; 84484; 85025; 85610; 93005; 99283; A9270-GY; G0378; G8978-GP-CI; G8979-GP-CI; G8980-GP-CI; J1160; J3475

== ENCOUNTER 2019-04-16 14:44 | Emergency (ER) | payer MEDICARE ==
[2019-04-16] MEDS ORDERED: Lidocaine 2% w EPI 1:100,000* 20 ML MDV VIAL INJ ONE (14:47)
--- NOTE | 2019-04-16 14:52 | ED ---
Laceration/Wound HPI - HPI Summary HPI Summary: Pt is a 78 y/o M presenting to the ED brought in by EMS for a laceration. He was getting out of his car when he cut his L calf on his car door, and he was unable to control the bleeding. He is on blood thinners. He denies any dizziness or shortness of breath. - History of Current Complaint Stated Complaint: LEFT LEG LACERATION PER EMS Hx Obtained From: Patient Mechanism of Injury: Sharp/Blunt Trauma Onset/Duration: Sudden Onset, Lasting Hours, Still Present Aggravating: Nothing Alleviating: Compression Timing: Constant Onset Severity: Mild Current Severity: None Pain Intensity: 0 Pain Scale Used: 0-10 Numeric Associated Signs & Symptoms: Negative Related Hx: Anticoagulat Use - Additional Pertinent History Primary Care Physician: RAYMOND - Allergy/Home Medications Allergies/Adverse Reactions: Allergies Allergy/AdvReac Type Severity Reaction Status Date / Time No Known Allergies Allergy Verified 01/16/18 10:08 PMH/Surg Hx/FS Hx/Imm Hx Previously Healthy: Yes Endocrine/Hematology History: Reports: Hx Anticoagulant Therapy Denies: Hx Diabetes Cardiovascular History: Reports: Hx Congestive Heart Failure, Hx Coronary Artery Disease, Hx Hypercholesterolemia, Hx Hypertension, Hx Pacemaker/ICD Respiratory History: Reports: Hx Chronic Obstructive Pulmonary Disease (COPD) GI History: Reports: Hx Ulcer, Other GI Disorders - exploratory laparotomy with perf colon Musculoskeletal History: Reports: Hx Arthritis, Other Musculoskeletal History - left knee replacement Sensory History: Reports: Hx Contacts or Glasses Denies: Hx Deafness, Hx Hearing Aid Opthamlomology History: Reports: Hx Contacts or Glasses Psychiatric History: Denies: Hx Autism - Surgical History Surgery Procedure, Year, and Place: left knee replacemenet, CABG x4, exploratory laparotomy, lysis of adhesions, cholecystectomy, Vidal patch repair of pyloric ulcer Hx Anesthesia Reactions: No - Immunization History Date of Tetanus Vaccine: unknown, will update today 10/08/16 Infectious Disease History: No Infectious Disease History: Denies: Traveled Outside the [place] in Last 30 Days - Family History Known Family History: Positive: Cardiac Disease, Hypertension - Social History Alcohol Use: None Hx Substance Use: No Substance Use Type: Reports: None Hx Tobacco Use: Yes Smoking Status (MU): Current Every Day Smoker Review of Systems Negative: Shortness Of Breath Positive: Other - laceration Neurological: Negative - dizziness All Other Systems Reviewed And Are Negative: Yes Physical Exam - Summary Physical Exam Summary: VITAL SIGNS: Reviewed. GENERAL: Patient is a well-developed and nourished male who is lying comfortable in the stretcher. Patient is not in any acute respiratory distress. HEAD AND FACE: No signs of trauma. No ecchymosis, hematomas or skull depressions. No sinus tenderness. EYES: PERRLA, EOMI x 2, No injected conjunctiva, no nystagmus. EARS: Hearing grossly intact. Ear canals and tympanic membranes are within normal limits. MOUTH: Oropharynx within normal limits. NECK: Supple, trachea is midline, no adenopathy, no JVD, no carotid bruit, no c- spine tenderness, neck with full ROM. CHEST: Symmetric, no tenderness at palpation. LUNGS: Clear to auscultation bilaterally. No wheezing or crackles. CVS: Regular rate and rhythm, S1 and S2 present, no murmurs or gallops appreciated. ABDOMEN: Soft, non-tender. No signs of distention. No rebound, no guarding, and no masses palpated. Bowel sounds are normal. EXTREMITIES: FROM in all major joints, no edema, no cyanosis or clubbing. NEURO: Alert and oriented x 3. No acute neurological deficits. Speech is normal and follows commands. SKIN: Dry and warm. 15cm laceration on the medial side of the L calf, and chronic discoloration of the legs due to peripheral vascular disease Triage Information Reviewed: Yes Vital Signs On Initial Exam: Initial Vitals Temp Pulse Resp BP Pulse Ox 98.4 F 69 18 131/94 96 04/16/19 14:45 04/16/19 14:45 04/16/19 14:45 04/16/19 14:45 04/16/19 14:45 Vital Signs Reviewed: Yes Procedures - Sedation Patient Received Moderate/Deep Sedation with Procedure: No - Laceration/Wound Repair 1 Location: lower extremity - L medial calf Description: Linear Anesthesia: Local, 2.0%, Lido, Epi Length, Depth and Shape: 15cm Irrigated w/ Saline (ccs): 1,000 Laceration/Wound Explored: clean Closure: Single Layer Debridement: minimal Suture Type: Nylon - 4-0 Number of Sutures: 1 - continuous Layer Closure?: Yes Sterile Dressing Applied?: Yes Diagnostics - Vital Signs Vital Signs Temp Pulse Resp BP Pulse Ox 02/08/20 14:45 98.4 F 69 18 131/94 96 - Laboratory Lab Statement: Any lab studies that have been ordered have been reviewed, and results considered in the medical decision making process. Laceration Repair Course/Dx - Course Assessment/Plan: Pt is a 78 y/o M presenting to the ED brought in by EMS for a laceration. He was getting out of his car when he cut his L calf on his car door , and he was unable to control the bleeding. He is on blood thinners. He denies any dizziness or shortness of breath. The bleeding was controlled. The laceration was repaired. The patient was given instructions to return to the emergency department the patient develops pain out of proportion, bleeding, decreased pulses to rule out compartment syndrome. Otherwise the patient will follow up with the primary care physician on Thursday or Thursday. The patient is up-to-date on vaccinations. At this point the patient is hemodynamically stable alert oriented 3. - Clinical Impression Provider Diagnoses: Laceration of left calf Discharge ED - Sign-Out/Discharge Documenting (check all that apply): Patient Departure - Discharge Plan Condition: Stable Disposition: HOME Patient Education Materials: Care For Your Stitches (ED) Referrals: Cachorro Benjamin MD [Primary Care Provider] - Additional Instructions: Please do not get your sutures wet for at least the next 72 hours following your discharge from the ER. Elevate your legs and ice them to reduce inflammation. Return to the emergency room if your pain increases, if you have any bleeding, or develop a fever. Follow up with your primary care provider within the next 2-3 days. - Billing Disposition and Condition Condition: STABLE Disposition: Home - Attestation Statements Document Initiated by Bessibe: Yes Documenting Scribe: Sachi James Provider For Whom Be is Documenting (Include Credential): Cachorro Harry MD. Scribe Attestation: Sachi Shaw scribed for Cachorro Harry MD. on 04/16/19 at 1857. Scribe Documentation Reviewed: Yes Provider Attestation: The documentation as recorded by the bessibeSachi accurately reflects the service I personally performed and the decisions made by me, Cachorro Harry MD. Status of Scribe Document: Viewed
[2019-04-16 16:34] VITALS: BP 114/67
== END 2019-04-16 16:32 | disposition home or self-care (01) ==
LOC: ED 14:44
DX: S81.812A Laceration without foreign body, left lower leg, initial encounter (principal); W45.8XXA Other foreign body or object entering through skin, initial encounter; Y92.9 Unspecified place or not applicable; I11.0 Hypertensive heart disease with heart failure; I50.9 Heart failure, unspecified; I25.10 Atherosclerotic heart disease of native coronary artery without angina pectoris; E78.00 Pure hypercholesterolemia, unspecified; J44.9 Chronic obstructive pulmonary disease, unspecified; F17.200 Nicotine dependence, unspecified, uncomplicated; Z95.810 Presence of automatic (implantable) cardiac defibrillator; Z95.1 Presence of aortocoronary bypass graft; Z96.652 Presence of left artificial knee joint; Z90.49 Acquired absence of other specified parts of digestive tract
CPT/HCPCS: 12005; 99281

== ENCOUNTER 2019-09-21 12:40 | Observation (INO) ==
[~2019-09-21 12:40] MED LIST: Buffered Lidocaine 1% SYRIN 1 ml INTRADERM ONE; Lactated Ringers 1000 ml BAG 1,000 ML IV SCH
[2019-09-21] MEDS ORDERED: ceFAZolin 1 GM ADVAN 1 GM ADDV.VIAL IVPB ONE (14:20)
[2019-09-21] MEDS ORDERED: Propofol 10 MG/ML 20 ML BTL ONE (14:50)
[2019-09-21] MEDS ORDERED: Phenylephrine IV 10 MG/ML 1 ml VIAL ONE (14:52)
[2019-09-21] MEDS ORDERED: Midazolam 5 mg/5 ml VIAL 1 mg/ml 5 ml VIAL (5 mg) ONE (15:07)
[2019-09-21] MEDS ORDERED: Ondansetron 4 mg VIAL 2 MG/ML 2 ml VIAL IV PRN (15:10)
[2019-09-21] MEDS: NS 0.9% 1000 ml BAG 1,000 ML IV SCH (17:34)
[2019-09-22 07:02] LABS: ABS Lymphocytes 0.4 10^3/ul (1.0-4.8); ABS Monocytes 0.5 10^3/ul (0-0.8); ABS Neutrophils 7.8 10^3/ul (1.5-7.7); Hematocrit 43 % (42-52); Hemoglobin 14.4 g/dL (14.0-18.0); Lymphocyte % 5.1 %; Mean Corpuscular HGB Conc 34 g/dL (31-36); Mean Corpuscular Hemoglobin 33 pg (27-31); Mean Corpuscular Volume 96 fL (80-94); Mean Platelet Volume 8.6 fL (7.4-10.4); Nucleated Red Blood Cells % 0.1; Platelet Count 176 10^3/uL (150-450); Red Blood Count 4.45 10^6 /uL (4.18-5.48); Red Cell Distribution Width 18 % (10-15); White Blood Count 8.7 10^3/uL (3.5-10.8)
[2019-09-22] MEDS: NS 0.9% 1000 ml BAG 1,000 ML IV SCH (07:21)
[2019-09-22 07:38] LABS: Albumin 3.4 g/dL (3.2-5.2); Albumin/Globulin Ratio 1.2 (1-3); BUN/Creatinine Ratio 27.5 (8-20); Calcium 8.5 mg/dL (8.6-10.3); EGFR African American 97.5 (>60); EGFR Non-African American 80.6 (>60); Globulin 2.8 g/dL (2-4); Potassium 4.6 mmol/L (3.5-5.0); Total Bilirubin 0.9 mg/dL (0.2-1.0); Total Protein 6.2 g/dL (6.4-8.9)
[2019-09-22 12:29] LABS: INR 1.32 (0.82-1.09)
[2019-09-22] MEDS ORDERED: Dexamethasone IV 8 MG in Premix IV 0 ML IV SLOW PU ONE (13:00)
[2019-09-22] MEDS ORDERED: CARBOPLATIN IVPB ONE (13:00)
[2019-09-22] MEDS ORDERED: NS 0.9% IVPB ONE (13:00)
[2019-09-22] MEDS ORDERED: Naloxone 0.4 mg VIAL 0.4 mg/ml 1 ml VIAL ONE (15:59)
[2019-09-22] MEDS ORDERED: fentaNYL 100 mcg/2 ml 50 MCG/ML VIAL ONE (15:59)
[2019-09-22] MEDS ORDERED: Flumazenil 0.5 mg/5 ml 0.1 MG/ML 5 ml VIAL ONE (15:59)
[2019-09-22] MEDS ORDERED: Midazolam 2 mg/2 ml VIAL 1 mg/ml 2 ml VIAL (2 mg) ONE (16:08)
[2019-09-22 17:51] VITALS: BP 123/68
[2019-09-22] MEDS ORDERED: CMCS: Pravastatin 20 mg TAB (NF) PO SCH (21:00)
== END 2019-09-22 18:57 | disposition home or self-care (01) ==
LOC: OR 12:40 → SSU 12:40
PROVIDERS: ADMIT Internal Medicine Hematology & Oncology; ATTEND Internal Medicine Hematology & Oncology
PROC: O.GIEGD (2019-09-21 14:10)

== ENCOUNTER 2019-10-31 15:01 | Inpatient (IN) ==
[2019-10-31] MEDS ORDERED: Amiodarone 360 MG IVPREMIX 360 MG/200 ML BAG IV ONE ×3 (15:14→21:22)
[2019-10-31] MEDS ORDERED: Amiodarone 150 mg IVPREMIX 150 MG/100 ML BAG IV ONE (15:14)
[2019-10-31] MEDS ORDERED: Magnesium Sulfate 2 gm BAG 2 GM/50 ML BAG IVPB ONE (15:24)
[2019-10-31 15:29] LABS: Hematocrit 37 % (42-52); Hemoglobin 12.9 g/dL (14.0-18.0); Mean Corpuscular HGB Conc 35 g/dL (31-36); Mean Corpuscular Hemoglobin 34 pg (27-31); Mean Corpuscular Volume 98 fL (80-94); Platelet Count 20 10^3/uL (150-450); Red Blood Count 3.81 10^6 /uL (4.18-5.48); Red Cell Distribution Width 18 % (10-15); White Blood Count 0.5 10^3/uL (3.5-10.8)
[2019-10-31 15:30] LABS: INR 3.19 (0.82-1.09)
[2019-10-31] MEDS ORDERED: NS 0.9% 1000 ml BAG 1,000 ML IV ONE (15:36)
[2019-10-31 15:44] LABS: Troponin I 0.01 ng/mL (<0.03)
[2019-10-31 15:48] LABS: ABS Lymphocytes 0.1 10^3/ul (1.0-4.8); ABS Monocytes 0.3 10^3/ul (0-0.8); Eosinophil % 1.6 %; Lymphocyte % 21.8 %; Nucleated Red Blood Cells % 1.1
[2019-10-31] MEDS ORDERED: Cefepime 2 GM in Dextrose 2 GM/50 ML BAG IV ONE (15:54)
[2019-10-31 16:07] LABS: ALT 25 U/L (7-52); AST 24 U/L (13-39); Alkaline Phosphatase 111 U/L (34-104); Anion Gap 10 mmol/L (2-11); Blood Urea Nitrogen 36 mg/dL (6-24); C Reactive Protein 306.56 mg/L (<8.01); CO2 Carbon Dioxide 25 mmol/L (22-32); Chloride 98 mmol/L (101-111); EGFR African American 87.4 (>60); EGFR Non-African American 72.3 (>60); Globulin 3.1 g/dL (2-4); Glucose 125 mg/dL (70-100); Magnesium 1.9 mg/dL (1.9-2.7); Potassium 4.6 mmol/L (3.5-5.0); Sodium 133 mmol/L (135-145); Total Protein 6.1 g/dL (6.4-8.9)
[2019-10-31 16:26] LABS: TSH Ultra Thyroid Stim Horm 1.31 mcIU/mL (0.34-5.60)
[2019-10-31 17:59] LABS: Digoxin < 0.3 ng/ml (0.8-2.0)
[2019-10-31 18:00] LABS: ABS Neutrophils 0.1 10^3/ul (1.5-7.7)
[2019-10-31] MEDS ORDERED: Amiodarone 150 mg IVPREMIX 0 MG/0 ML BAG IV ONE (21:17)
[2019-10-31] MEDS: CMCS: Pravastatin 20 mg TAB (NF) PO SCH (21:25)
[2019-10-31] MEDS: Amiodarone 360 MG IVPREMIX 360 MG/200 ML BAG IV SCH (21:53)
[2019-11-01] MEDS ORDERED: Amiodarone 360 MG IVPREMIX 360 MG/200 ML BAG IV SCH (03:22)
[2019-11-01 04:07] LABS: Calcium 8.4 mg/dL (8.6-10.3); Magnesium 2.1 mg/dL (1.9-2.7); Potassium 3.8 mmol/L (3.5-5.0)
[2019-11-01 04:12] LABS: BUN/Creatinine Ratio 44.3 (8-20); C Reactive Protein 282.53 mg/L (<8.01); EGFR Non-African American 109.1 (>60); Phosphorus 4.1 mg/dL (2.5-5.0)
[2019-11-01 04:14] LABS: INR 3.6 (0.82-1.09)
[2019-11-01 04:15] LABS: Hematocrit 33 % (42-52); Hemoglobin 11.5 g/dL (14.0-18.0); Mean Corpuscular HGB Conc 35 g/dL (31-36); Mean Corpuscular Hemoglobin 34 pg (27-31); Mean Corpuscular Volume 97 fL (80-94); Mean Platelet Volume 8.2 fL (7.4-10.4); Platelet Count 13 10^3/uL (150-450); Red Blood Count 3.42 10^6 /uL (4.18-5.48); Red Cell Distribution Width 18 % (10-15); White Blood Count 0.4 10^3/uL (3.5-10.8)
[2019-11-01 06:34] LABS: Microcytosis 1+
[2019-11-01] MEDS ORDERED: Phytonadione IV (Adult) 10 MG/ML 1 ML AMP IV ONE (07:28)
[2019-11-01] MEDS: Amiodarone 360 MG IVPREMIX 360 MG/200 ML BAG IV SCH (08:35)
[2019-11-01 09:28] LABS: Urine Appearance Clear; Urine Bacteria Absent (Absent); Urine Bilirubin Negative (Negative); Urine Blood 1+ (Negative); Urine Color Amber; Urine Glucose Negative (Negative); Urine Ketones Negative (Negative); Urine Nitrite Negative (Negative); Urine Protein 1+(30 mg/dL) (Negative); Urine Red Blood Cell Trace(0-2/hpf) (Absent); Urine Specific Gravity 1.021 (1.010-1.030); Urine Squamous Epithelial Cell Present (Absent); Urine Urobilinogen Positive (Negative); Urine White Blood Cell Absent (Absent)
[2019-11-01] MEDS ORDERED: Perflutren Lipid Microsphere 3 ML VIAL ONE (09:30)
[2019-11-01] MEDS ORDERED: NS 0.9% 1000 ml BAG 1,000 ML IV SCH ×3 (10:45→10:59)
[2019-11-01] MEDS ORDERED: Palonosetron 0.25 MG in NS 0.9% 50 ML 50 ML IVPB ONE (10:46)
[2019-11-01] MEDS: metroNIDAZOLE IV 500 MG/100ML 500 MG/100 ML BAG IVPB SCH ×2 (12:20→19:23)
[2019-11-01] MEDS: Silver Sulfadiazine 1% 20 gm TUBE TOPICAL SCH ×2 (14:25→20:56)
[2019-11-01] MEDS: CMCS: Pravastatin 20 mg TAB (NF) PO SCH (20:50)
[2019-11-01] MEDS: Amiodarone 400 mg TAB PO SCH (20:50)
[2019-11-02] MEDS: metroNIDAZOLE IV 500 MG/100ML 500 MG/100 ML BAG IVPB SCH ×3 (03:02→20:54)
[2019-11-02 05:17] LABS: ABS Lymphocytes 0.1 10^3/ul (1.0-4.8); ABS Monocytes 0.2 10^3/ul (0-0.8); ABS Neutrophils 0.4 10^3/ul (1.5-7.7); Hematocrit 34 % (42-52); Hemoglobin 11.4 g/dL (14.0-18.0); INR 1.47 (0.82-1.09); Lymphocyte % 8.1 %; Mean Corpuscular HGB Conc 34 g/dL (31-36); Mean Corpuscular Hemoglobin 33 pg (27-31); Mean Corpuscular Volume 99 fL (80-94); Mean Platelet Volume 8.8 fL (7.4-10.4); Nucleated Red Blood Cells % 0.7; Platelet Count 9 10^3/uL (150-450); Red Blood Count 3.44 10^6 /uL (4.18-5.48); Red Cell Distribution Width 18 % (10-15); White Blood Count 0.7 10^3/uL (3.5-10.8)
[2019-11-02 05:20] LABS: BUN/Creatinine Ratio 43.1 (8-20); Calcium 8.2 mg/dL (8.6-10.3); EGFR Non-African American 135.5 (>60); Potassium 3.9 mmol/L (3.5-5.0)
[2019-11-02] MEDS: Amiodarone 400 mg TAB PO SCH ×2 (09:54→22:13)
[2019-11-02] MEDS: Silver Sulfadiazine 1% 20 gm TUBE TOPICAL SCH ×2 (09:56→22:13)
[2019-11-02 12:16] LABS: Mean Platelet Volume 8.4 fL (7.4-10.4); Platelet Count 23 10^3/uL (150-450)
[2019-11-02] MEDS: CMCS: Pravastatin 20 mg TAB (NF) PO SCH (22:13)
[2019-11-03] MEDS: metroNIDAZOLE IV 500 MG/100ML 500 MG/100 ML BAG IVPB SCH ×3 (03:24→19:17)
[2019-11-03 07:00] LABS: INR 1.61 (0.82-1.09)
[2019-11-03 07:04] LABS: BUN/Creatinine Ratio 40.7 (8-20); Calcium 8.2 mg/dL (8.6-10.3); EGFR African American 178.1 (>60); EGFR Non-African American 147.2 (>60); Potassium 4.4 mmol/L (3.5-5.0)
[2019-11-03 07:25] LABS: Hematocrit 32 % (42-52); Hemoglobin 11.1 g/dL (14.0-18.0); Mean Corpuscular HGB Conc 35 g/dL (31-36); Mean Corpuscular Hemoglobin 34 pg (27-31); Mean Corpuscular Volume 98 fL (80-94); Mean Platelet Volume 8.6 fL (7.4-10.4); Platelet Count 12 10^3/uL (150-450); Red Blood Count 3.29 10^6 /uL (4.18-5.48); Red Cell Distribution Width 18 % (10-15); White Blood Count 1.6 10^3/uL (3.5-10.8)
[2019-11-03 09:20] LABS: ABS Lymphocytes 0.1 10^3/ul (1.0-4.8); ABS Monocytes 0.3 10^3/ul (0-0.8); ABS Neutrophils 1.2 10^3/ul (1.5-7.7); Eosinophil % 0.2 %; Lymphocyte % 6.4 %; Nucleated Red Blood Cells % 0.5
[2019-11-03] MEDS: Amiodarone 400 mg TAB PO SCH ×2 (09:33→21:11)
[2019-11-03] MEDS: Silver Sulfadiazine 1% 20 gm TUBE TOPICAL SCH ×2 (09:45→21:11)
[2019-11-03] MEDS: CMCS: Pravastatin 20 mg TAB (NF) PO SCH (21:11)
[2019-11-04] MEDS: metroNIDAZOLE IV 500 MG/100ML 500 MG/100 ML BAG IVPB SCH ×3 (04:02→21:35)
[2019-11-04 06:43] LABS: Hematocrit 32 % (42-52); Hemoglobin 11.1 g/dL (14.0-18.0); Mean Corpuscular HGB Conc 34 g/dL (31-36); Mean Corpuscular Hemoglobin 34 pg (27-31); Mean Corpuscular Volume 99 fL (80-94); Mean Platelet Volume 9.1 fL (7.4-10.4); Red Blood Count 3.27 10^6 /uL (4.18-5.48); Red Cell Distribution Width 18 % (10-15)
[2019-11-04 06:49] LABS: INR 1.59 (0.82-1.09)
[2019-11-04 06:58] LABS: BUN/Creatinine Ratio 36.7 (8-20); Calcium 8.4 mg/dL (8.6-10.3); EGFR African American 157.7 (>60); EGFR Non-African American 130.3 (>60); Potassium 4.9 mmol/L (3.5-5.0)
[2019-11-04 07:43] LABS: ABS Lymphocytes 0.2 10^3/ul (1.0-4.8); ABS Monocytes 0.5 10^3/ul (0-0.8); ABS Neutrophils 4.3 10^3/ul (1.5-7.7); Eosinophil % 0.1 %; Lymphocyte % 4.9 %; Nucleated Red Blood Cells % 0.1
[2019-11-04] MEDS ORDERED: Iohexol 300 (CONTRAST) 10 ML SDV IV ONE (07:49)
[2019-11-04 08:18] LABS: Platelet Count 14 10^3/uL (150-450)
[2019-11-04] MEDS: Amiodarone 400 mg TAB PO SCH ×2 (11:01→21:34)
[2019-11-04] MEDS: Silver Sulfadiazine 1% 20 gm TUBE TOPICAL SCH ×2 (11:02→21:38)
[2019-11-04] MEDS: Dexamethasone 0.1 MG/ML ORALSYR SWISH SPIT SCH ×3 (14:20→21:39)
[2019-11-04] MEDS: Magic MouthWash2-BEN/MAAL/LIDO/NYST 240 ML BTL (alt formulation) SWISH SPIT SCH ×3 (14:20→21:38)
[2019-11-04] MEDS: CMCS: Pravastatin 20 mg TAB (NF) PO SCH (21:34)
[2019-11-04] MEDS: Loperamide LIQ 2 MG/15 ML UDC PO PRN (21:44)
[2019-11-05] MEDS: metroNIDAZOLE IV 500 MG/100ML 500 MG/100 ML BAG IVPB SCH ×2 (03:45→10:48)
[2019-11-05 07:10] LABS: Hematocrit 31 % (42-52); Hemoglobin 10.7 g/dL (14.0-18.0); Mean Corpuscular HGB Conc 34 g/dL (31-36); Mean Corpuscular Hemoglobin 34 pg (27-31); Mean Corpuscular Volume 99 fL (80-94); Mean Platelet Volume 9.1 fL (7.4-10.4); Platelet Count 20 10^3/uL (150-450); Red Blood Count 3.15 10^6 /uL (4.18-5.48); Red Cell Distribution Width 19 % (10-15); White Blood Count 5.3 10^3/uL (3.5-10.8)
[2019-11-05] MEDS: Amiodarone 400 mg TAB PO SCH ×2 (08:22→22:04)
[2019-11-05] MEDS: Loperamide LIQ 2 MG/15 ML UDC PO PRN ×2 (08:22→22:08)
[2019-11-05] MEDS: Magic MouthWash2-BEN/MAAL/LIDO/NYST 240 ML BTL (alt formulation) SWISH SPIT SCH ×4 (08:23→22:13)
[2019-11-05] MEDS: Silver Sulfadiazine 1% 20 gm TUBE TOPICAL SCH ×2 (08:24→22:14)
[2019-11-05] MEDS ORDERED: NS 0.9% 1000 ml BAG 1,000 ML IV ONE (08:25)
[2019-11-05] MEDS: Dexamethasone 0.1 MG/ML ORALSYR SWISH SPIT SCH ×4 (10:12→22:12)
[2019-11-05 10:22] LABS: ABS Lymphocytes 0.2 10^3/ul (1.0-4.8); ABS Monocytes 0.5 10^3/ul (0-0.8); ABS Neutrophils 4.6 10^3/ul (1.5-7.7); Eosinophil % 0.1 %; Lymphocyte % 3.8 %; Nucleated Red Blood Cells % 0.1
[2019-11-05] MEDS ORDERED: Levalbuterol 1.25MG/0.5ML NEB.SOL INH ONE (21:17)
[2019-11-05] MEDS: CMCS: Pravastatin 20 mg TAB (NF) PO SCH (22:11)
[2019-11-05] MEDS ORDERED: Levalbuterol 1.25MG/0.5ML NEB.SOL ONE (22:32)
[2019-11-06] MEDS: Loperamide LIQ 2 MG/15 ML UDC PO PRN (04:05)
[2019-11-06 06:32] LABS: Hematocrit 30 % (42-52); Hemoglobin 10.6 g/dL (14.0-18.0); Mean Corpuscular HGB Conc 35 g/dL (31-36); Mean Corpuscular Hemoglobin 34 pg (27-31); Mean Corpuscular Volume 98 fL (80-94); Mean Platelet Volume 10.7 fL (7.4-10.4); Platelet Count 28 10^3/uL (150-450); Red Cell Distribution Width 18 % (10-15); White Blood Count 5.4 10^3/uL (3.5-10.8)
[2019-11-06 06:37] LABS: BUN/Creatinine Ratio 35.1 (8-20); EGFR African American 167.3 (>60); EGFR Non-African American 138.3 (>60)
[2019-11-06] MEDS: Amiodarone 400 mg TAB PO SCH ×2 (08:13→20:32)
[2019-11-06] MEDS: Silver Sulfadiazine 1% 20 gm TUBE TOPICAL SCH ×2 (08:21→20:33)
[2019-11-06] MEDS: Magic MouthWash2-BEN/MAAL/LIDO/NYST 240 ML BTL (alt formulation) SWISH SPIT SCH ×4 (08:22→20:34)
[2019-11-06] MEDS: Dexamethasone 0.1 MG/ML ORALSYR SWISH SPIT SCH ×4 (08:24→20:35)
[2019-11-06 10:40] LABS: ABS Lymphocytes 0.2 10^3/ul (1.0-4.8); ABS Monocytes 0.7 10^3/ul (0-0.8); ABS Neutrophils 4.5 10^3/ul (1.5-7.7); Eosinophil % 0.1 %; Lymphocyte % 3.6 %
[2019-11-06] MEDS ORDERED: Vancomycin per Pharmacy 1 EA NOTE FOLLOW UP PRN (10:58)
[2019-11-06] MEDS ORDERED: Vancomycin 1,500 MG in NS 0.9% 250 ml 250 ML IVPB ONE (11:00)
[2019-11-06] MEDS: Cefepime 2 GM in Dextrose 2 GM/50 ML BAG IV SCH ×2 (13:46→22:25)
[2019-11-06] MEDS: Vancomycin 1,250 MG in NS 0.9% 250 ml 250 ML IV SCH (20:29)
[2019-11-06] MEDS: CMCS: Pravastatin 20 mg TAB (NF) PO SCH (20:33)
[2019-11-07] MEDS: Vancomycin 1,250 MG in NS 0.9% 250 ml 250 ML IV SCH ×2 (03:45→12:59)
[2019-11-07] MEDS: Cefepime 2 GM in Dextrose 2 GM/50 ML BAG IV SCH ×3 (06:16→23:12)
[2019-11-07 06:58] LABS: EGFR African American 160.8 (>60); EGFR Non-African American 132.9 (>60)
[2019-11-07 07:51] LABS: Hematocrit 30 % (42-52); Hemoglobin 10.3 g/dL (14.0-18.0); Mean Corpuscular HGB Conc 34 g/dL (31-36); Mean Corpuscular Hemoglobin 34 pg (27-31); Mean Corpuscular Volume 98 fL (80-94); Red Blood Count 3.06 10^6 /uL (4.18-5.48); Red Cell Distribution Width 19 % (10-15); White Blood Count 4.4 10^3/uL (3.5-10.8)
[2019-11-07 08:25] LABS: ABS Lymphocytes 0.3 10^3/ul (1.0-4.8); ABS Monocytes 0.6 10^3/ul (0-0.8); ABS Neutrophils 3.6 10^3/ul (1.5-7.7); ABS Nucleated RBC 0.1 10^3/ul; Eosinophil % 0.1 %; Lymphocyte % 6.3 %; Nucleated Red Blood Cells % 1.1; Platelet Count 50 10^3/uL (150-450)
[2019-11-07] MEDS: Amiodarone 400 mg TAB PO SCH ×2 (09:52→21:37)
[2019-11-07] MEDS: Dexamethasone 0.1 MG/ML ORALSYR SWISH SPIT SCH ×4 (09:54→21:37)
[2019-11-07] MEDS: Magic MouthWash2-BEN/MAAL/LIDO/NYST 240 ML BTL (alt formulation) SWISH SPIT SCH ×4 (09:54→21:38)
[2019-11-07] MEDS: Silver Sulfadiazine 1% 20 gm TUBE TOPICAL SCH ×2 (09:55→21:38)
[2019-11-07] MEDS ORDERED: Vancomycin Trough Check NOTE FOLLOW UP ONE (11:30)
[2019-11-07] MEDS: Diphenoxylat/Atrop 2.5-0.025mg TAB PO SCH ×2 (14:04→21:37)
[2019-11-07] MEDS: Warfarin DAILY REMINDER **NOTE FOLLOW UP SCH (17:12)
[2019-11-07] MEDS: CMCS: Pravastatin 20 mg TAB (NF) PO SCH (21:37)
[2019-11-07] MEDS: Psyllium PAK PO SCH (21:37)
[2019-11-08] MEDS: Cefepime 2 GM in Dextrose 2 GM/50 ML BAG IV SCH ×2 (05:00→13:52)
[2019-11-08 05:44] LABS: Hematocrit 30 % (42-52); Hemoglobin 10.3 g/dL (14.0-18.0); Mean Corpuscular HGB Conc 34 g/dL (31-36); Mean Corpuscular Hemoglobin 33 pg (27-31); Mean Corpuscular Volume 98 fL (80-94); Mean Platelet Volume 10.2 fL (7.4-10.4); Platelet Count 75 10^3/uL (150-450); Red Cell Distribution Width 19 % (10-15); White Blood Count 4.6 10^3/uL (3.5-10.8)
[2019-11-08 05:52] LABS: BUN/Creatinine Ratio 31.7 (8-20); EGFR African American 157.7 (>60); EGFR Non-African American 130.3 (>60); Potassium 4.9 mmol/L (3.5-5.0)
[2019-11-08 07:41] LABS: ABS Lymphocytes 0.2 10^3/ul (1.0-4.8); ABS Monocytes 0.6 10^3/ul (0-0.8); ABS Neutrophils 3.7 10^3/ul (1.5-7.7); Eosinophil % 0.2 %; Lymphocyte % 4.2 %; Nucleated Red Blood Cells % 0.7
[2019-11-08] MEDS: Amiodarone 400 mg TAB PO SCH (09:48)
[2019-11-08] MEDS: Dexamethasone 0.1 MG/ML ORALSYR SWISH SPIT SCH ×4 (09:50→19:46)
[2019-11-08] MEDS: Diphenoxylat/Atrop 2.5-0.025mg TAB PO SCH ×2 (09:51→19:47)
[2019-11-08] MEDS: Magic MouthWash2-BEN/MAAL/LIDO/NYST 240 ML BTL (alt formulation) SWISH SPIT SCH ×4 (09:53→19:48)
[2019-11-08] MEDS: Silver Sulfadiazine 1% 20 gm TUBE TOPICAL SCH ×2 (09:53→19:47)
[2019-11-08] MEDS: Psyllium PAK PO SCH ×3 (09:53→19:46)
[2019-11-08] MEDS: Warfarin DAILY REMINDER **NOTE FOLLOW UP SCH (16:09)
[2019-11-08] MEDS: CMCS: Pravastatin 20 mg TAB (NF) PO SCH (19:47)
[2019-11-08] MEDS: ceFAZolin 2 GM PREMIX 2 GM/50 ML BAG IVPB SCH (20:14)
[2019-11-09] MEDS: ceFAZolin 2 GM PREMIX 2 GM/50 ML BAG IVPB SCH ×3 (05:35→20:13)
[2019-11-09 06:00] LABS: Hematocrit 30 % (42-52); Hemoglobin 10.1 g/dL (14.0-18.0); Mean Corpuscular HGB Conc 33 g/dL (31-36); Mean Corpuscular Hemoglobin 33 pg (27-31); Mean Corpuscular Volume 98 fL (80-94); Mean Platelet Volume 10.3 fL (7.4-10.4); Platelet Count 124 10^3/uL (150-450); Red Blood Count 3.08 10^6 /uL (4.18-5.48); Red Cell Distribution Width 18 % (10-15); White Blood Count 4.7 10^3/uL (3.5-10.8)
[2019-11-09 06:23] LABS: INR 1.3 (0.82-1.09)
[2019-11-09 07:22] LABS: ABS Lymphocytes 0.2 10^3/ul (1.0-4.8); ABS Monocytes 0.6 10^3/ul (0-0.8); ABS Neutrophils 3.9 10^3/ul (1.5-7.7); ABS Nucleated RBC 0.1 10^3/ul; Eosinophil % 0.1 %; Lymphocyte % 3.4 %; Nucleated Red Blood Cells % 1.1
[2019-11-09] MEDS: Diphenoxylat/Atrop 2.5-0.025mg TAB PO SCH ×2 (08:45→20:15)
[2019-11-09] MEDS: Dexamethasone 0.1 MG/ML ORALSYR SWISH SPIT SCH ×4 (08:45→20:15)
[2019-11-09] MEDS: Loperamide LIQ 2 MG/15 ML UDC PO PRN (08:46)
[2019-11-09] MEDS: Psyllium PAK PO SCH ×3 (08:46→20:17)
[2019-11-09] MEDS: Magic MouthWash2-BEN/MAAL/LIDO/NYST 240 ML BTL (alt formulation) SWISH SPIT SCH ×4 (08:49→20:16)
[2019-11-09] MEDS: Silver Sulfadiazine 1% 20 gm TUBE TOPICAL SCH ×2 (08:49→20:14)
[2019-11-09] MEDS: Amiodarone 400 mg TAB PO SCH (12:20)
[2019-11-09] MEDS: Warfarin DAILY REMINDER **NOTE FOLLOW UP SCH (17:04)
[2019-11-09] MEDS: CMCS: Pravastatin 20 mg TAB (NF) PO SCH (20:30)
[2019-11-10] MEDS: ceFAZolin 2 GM PREMIX 2 GM/50 ML BAG IVPB SCH ×3 (05:30→21:07)
[2019-11-10 05:59] LABS: Hematocrit 30 % (42-52); Hemoglobin 10.1 g/dL (14.0-18.0); Mean Corpuscular HGB Conc 34 g/dL (31-36); Mean Corpuscular Hemoglobin 33 pg (27-31); Mean Corpuscular Volume 98 fL (80-94); Mean Platelet Volume 9.5 fL (7.4-10.4); Platelet Count 193 10^3/uL (150-450); Red Blood Count 3.07 10^6 /uL (4.18-5.48); Red Cell Distribution Width 19 % (10-15); White Blood Count 4.9 10^3/uL (3.5-10.8)
[2019-11-10 06:07] LABS: INR 1.36 (0.82-1.09)
[2019-11-10] MEDS: Dexamethasone 0.1 MG/ML ORALSYR SWISH SPIT SCH ×4 (08:19→21:07)
[2019-11-10] MEDS: Diphenoxylat/Atrop 2.5-0.025mg TAB PO SCH ×2 (08:19→21:07)
[2019-11-10] MEDS: Silver Sulfadiazine 1% 20 gm TUBE TOPICAL SCH ×2 (08:20→21:07)
[2019-11-10] MEDS: Psyllium PAK PO SCH ×3 (08:20→21:07)
[2019-11-10] MEDS: Magic MouthWash2-BEN/MAAL/LIDO/NYST 240 ML BTL (alt formulation) SWISH SPIT SCH ×4 (08:20→21:07)
[2019-11-10] MEDS: Amiodarone 400 mg TAB PO SCH (08:20)
[2019-11-10 09:27] LABS: ABS Lymphocytes 0.2 10^3/ul (1.0-4.8); ABS Monocytes 0.6 10^3/ul (0-0.8); Eosinophil % 0.1 %; Lymphocyte % 4.4 %; Nucleated Red Blood Cells % 0.4
[2019-11-10] MEDS: Warfarin DAILY REMINDER **NOTE FOLLOW UP SCH (16:04)
[2019-11-10] MEDS: CMCS: Pravastatin 20 mg TAB (NF) PO SCH (21:07)
[2019-11-11] MEDS: ceFAZolin 2 GM PREMIX 2 GM/50 ML BAG IVPB SCH ×2 (05:30→11:43)
[2019-11-11 06:37] LABS: BUN/Creatinine Ratio 35.6 (8-20); C Reactive Protein 10.15 mg/L (<8.01); Calcium 8.1 mg/dL (8.6-10.3); EGFR African American 160.8 (>60); EGFR Non-African American 132.9 (>60); Potassium 4.9 mmol/L (3.5-5.0)
[2019-11-11] MEDS: Dexamethasone 0.1 MG/ML ORALSYR SWISH SPIT SCH (08:54)
[2019-11-11] MEDS: Diphenoxylat/Atrop 2.5-0.025mg TAB PO SCH (08:54)
[2019-11-11] MEDS: Psyllium PAK PO SCH (08:56)
[2019-11-11] MEDS: Amiodarone 400 mg TAB PO SCH (08:57)
[2019-11-11] MEDS: Magic MouthWash2-BEN/MAAL/LIDO/NYST 240 ML BTL (alt formulation) SWISH SPIT SCH (08:58)
[2019-11-11] MEDS: Silver Sulfadiazine 1% 20 gm TUBE TOPICAL SCH (09:00)
[2019-11-11 10:13] LABS: Hematocrit 32 % (42-52); Hemoglobin 10.6 g/dL (14.0-18.0); Mean Corpuscular HGB Conc 34 g/dL (31-36); Mean Corpuscular Hemoglobin 33 pg (27-31); Mean Corpuscular Volume 99 fL (80-94); Mean Platelet Volume 8.6 fL (7.4-10.4); Platelet Count 277 10^3/uL (150-450); Red Cell Distribution Width 19 % (10-15); White Blood Count 5.5 10^3/uL (3.5-10.8)
[2019-11-11 10:22] LABS: INR 1.49 (0.82-1.09)
[2019-11-11 10:55] LABS: ABS Lymphocytes 0.3 10^3/ul (1.0-4.8); ABS Monocytes 0.8 10^3/ul (0-0.8); ABS Neutrophils 4.4 10^3/ul (1.5-7.7); Eosinophil % 0.1 %; Lymphocyte % 5.2 %; Nucleated Red Blood Cells % 0.4
[2019-11-11 10:57] LABS: Polychromasia 1+
[2019-11-11 12:43] VITALS: BP 106/54
== END 2019-11-11 12:45 | DRG 308 ==
LOC: ED 15:01 → ICU 17:19 → MEDTELE 11-02 13:31
PROVIDERS: ADMIT Internal Medicine; ATTEND Internal Medicine

== ENCOUNTER 2021-03-21 19:28 | Inpatient (IN) ==
[2021-03-21] MEDS ORDERED: cefTRIAXone 1 gm/50 mL NS BAG 1 GM/50 ML BAG IV ONE (20:40)
[2021-03-21] MEDS ORDERED: Azithromycin 500 mg/250 ml NS 500 MG/250 ML BAG IVPB ONE (20:40)
[2021-03-21] MEDS ORDERED: Albuterol HFA INHALER 8 gm MDI INH ONE (21:08)
[2021-03-21 21:17] LABS: ABS Lymphocytes 0.1 10^3/ul (1.0-4.8); ABS Monocytes 0.7 10^3/ul (0-0.8); ABS Neutrophils 15.6 10^3/ul (1.5-7.7); Hematocrit 52 % (42-52); Hemoglobin 17.2 g/dL (14.0-18.0); Lymphocyte % 0.7 %; Mean Corpuscular HGB Conc 33 g/dL (31-36); Mean Corpuscular Hemoglobin 33 pg (27-31); Mean Corpuscular Volume 99 fL (80-94); Mean Platelet Volume 8.6 fL (7.4-10.4); Platelet Count 239 10^3/uL (150-450); Red Blood Count 5.22 10^6 /uL (4.18-5.48); Red Cell Distribution Width 18 % (10-15); White Blood Count 16.5 10^3/uL (3.5-10.8)
[2021-03-21 21:36] LABS: Activated Partial Thrombo Time 49.3 seconds (26.0-38.0)
[2021-03-21 21:37] LABS: ALT 122 U/L (7-52); AST 44 U/L (13-39); Albumin 2.7 g/dL (3.2-5.2); Albumin/Globulin Ratio 0.7 (1-3); Alkaline Phosphatase 98 U/L (35-149); Blood Urea Nitrogen 27 mg/dL (6-24); CO2 Carbon Dioxide 27 mmol/L (22-32); Calcium 7.8 mg/dL (8.6-10.3); Chloride 102 mmol/L (101-111); Globulin 3.9 g/dL (2-4); Glucose 114 mg/dL (70-100); Sodium 136 mmol/L (135-145); Total Protein 6.6 g/dL (6.4-8.9); eGFR CKD-EPI 97.2 (>60)
[2021-03-21 21:41] LABS: LDH 369 U/L (140-271)
[2021-03-21 21:44] LABS: Anion Gap 7 mmol/L (2-11); Potassium 5.2 mmol/L (3.5-5.0); Troponin I 0.07 ng/mL (<0.03)
[2021-03-21] MEDS ORDERED: Dexamethasone IV 4 MG/ML VIAL 1 ml VIAL IV SLOW PU ONE (21:52)
[2021-03-21 21:58] LABS: Ferritin 540.7 ng/mL (24-336)
[2021-03-21 22:00] LABS: INR 6.79 (0.86-1.15)
[2021-03-21] MEDS ORDERED: Phytonadione Oral Solution 5 MG/25 ML UDC PO ONE (22:54)
[2021-03-21 22:55] LABS: PCO2 Arterial 36 mmHg (35-45); PO2 Arterial 60 mmHg (80-100)
[2021-03-21] MEDS ORDERED: Magnesium Hydroxide LIQ 30 ML UDC PO PRN (22:58)
[2021-03-21] MEDS ORDERED: Glycerin ADULT 2.4 gm SUPP PR PRN (22:58)
[2021-03-21] MEDS ORDERED: Tocilizumab 200 MG/10 ML 10 ml VIAL IVPB ONE (23:16)
[2021-03-21] MEDS ORDERED: NS 0.9% IVPB ONE (23:45)
[2021-03-21] MEDS ORDERED: TOCILIZUMAB IVPB ONE (23:45)
[2021-03-21 23:47] LABS: Digoxin 1.7 ng/ml (0.8-2.0)
[2021-03-22] MEDS ORDERED: NS 0.9% 1000 ml BAG 1,000 ML IV ONE (01:38)
[2021-03-22 04:39] LABS: Troponin I 0.04 ng/mL (<0.03)
[2021-03-22 05:19] LABS: Hematocrit 49 % (42-52); Hemoglobin 16.2 g/dL (14.0-18.0); Mean Corpuscular HGB Conc 33 g/dL (31-36); Mean Corpuscular Hemoglobin 33 pg (27-31); Mean Corpuscular Volume 99 fL (80-94); Platelet Count 188 10^3/uL (150-450); Red Blood Count 4.94 10^6 /uL (4.18-5.48); Red Cell Distribution Width 18 % (10-15); White Blood Count 14.5 10^3/uL (3.5-10.8)
[2021-03-22 05:25] LABS: ABS Lymphocytes 0.1 10^3/ul (1.0-4.8); ABS Monocytes 0.3 10^3/ul (0-0.8); Lymphocyte % 0.6 %
[2021-03-22 05:30] LABS: Albumin 2.4 g/dL (3.2-5.2); Calcium 7.4 mg/dL (8.6-10.3); Total Bilirubin 1.5 mg/dL (0.2-1.0)
[2021-03-22 05:35] LABS: INR 3.17 (0.86-1.15)
[2021-03-22 05:36] LABS: Albumin/Globulin Ratio 0.6 (1-3); Globulin 3.7 g/dL (2-4); Total Protein 6.1 g/dL (6.4-8.9); eGFR CKD-EPI 91.1 (>60)
[2021-03-22 06:01] LABS: Potassium 4.9 mmol/L (3.5-5.0)
[2021-03-22] MEDS: methylPREDNISolone SOD 40 mg/ml 1 ml VIAL IV SCH ×3 (07:31→20:37)
[2021-03-22 08:04] LABS: Magnesium 1.6 mg/dL (1.9-2.7)
[2021-03-22] MEDS: Amiodarone 400 mg TAB PO SCH (09:05)
[2021-03-22] MEDS ORDERED: Magnesium Sulf 4 GM/100 ML IV 4,000 MG/100 ML BAG IVPB ONE (10:08)
[2021-03-22 10:44] LABS: Phosphorus 3.2 mg/dL (2.5-5.0)
[2021-03-22] MEDS ORDERED: Piperacillin/Tazobac ADVAN 3.375 GM in NS 0.9% 100 ml BAG 100 ML IV ONE (14:06)
[2021-03-22] MEDS ORDERED: Zosyn per Pharmacy NOTE FOLLOW UP SCH (15:00)
[2021-03-22] MEDS ORDERED: ZOSYN 3.375 GM Q8H per EXTENDED INFUSION IV SCH (19:00)
[2021-03-22] MEDS ORDERED: cefTRIAXone 1 gm/50 mL NS BAG 1 GM/50 ML BAG IVPB SCH (20:30)
[2021-03-22] MEDS ORDERED: Azithromycin 500 mg/250 ml NS 500 MG/250 ML BAG IVPB SCH (21:00)
[2021-03-22] MEDS: cefTRIAXone 2 GM ADDV.VIAL 2 GM in NS 0.9% 100 ml BAG 100 ML IV SCH (22:49)
[2021-03-23 04:05] LABS: ABS Lymphocytes 0.1 10^3/ul (1.0-4.8); ABS Monocytes 0.2 10^3/ul (0-0.8); ABS Neutrophils 12.4 10^3/ul (1.5-7.7); Eosinophil % 0.1 %; Hematocrit 45 % (42-52); Hemoglobin 15.1 g/dL (14.0-18.0); Lymphocyte % 0.9 %; Mean Corpuscular HGB Conc 33 g/dL (31-36); Mean Corpuscular Hemoglobin 33 pg (27-31); Mean Corpuscular Volume 99 fL (80-94); Mean Platelet Volume 9.1 fL (7.4-10.4); Nucleated Red Blood Cells % 0.1; Platelet Count 150 10^3/uL (150-450); Red Blood Count 4.56 10^6 /uL (4.18-5.48); Red Cell Distribution Width 17 % (10-15); White Blood Count 12.7 10^3/uL (3.5-10.8)
[2021-03-23 04:15] LABS: INR 1.68 (0.86-1.15)
[2021-03-23 04:21] LABS: Albumin 2.2 g/dL (3.2-5.2); Albumin/Globulin Ratio 0.7 (1-3); Calcium 6.9 mg/dL (8.6-10.3); Globulin 3.3 g/dL (2-4); Potassium 4.3 mmol/L (3.5-5.0); Total Bilirubin 0.8 mg/dL (0.2-1.0); Total Protein 5.5 g/dL (6.4-8.9); eGFR CKD-EPI 91.8 (>60)
[2021-03-23] MEDS: methylPREDNISolone SOD 40 mg/ml 1 ml VIAL IV SCH ×3 (04:54→20:40)
[2021-03-23] MEDS ORDERED: Furosemide 40 mg/4 ml IV VIAL IV SLOW PU ONE (07:26)
[2021-03-23 08:14] LABS: Magnesium 2.4 mg/dL (1.9-2.7); Phosphorus 3.3 mg/dL (2.5-5.0)
[2021-03-23] MEDS: Amiodarone 400 mg TAB PO SCH (09:36)
[2021-03-23] MEDS ORDERED: Warfarin per PHARMACY **NOTE FOLLOW UP SCH (18:00)
[2021-03-23] MEDS ORDERED: Enoxaparin 80 MG/0.8 ML SYR SUBCUT SCH (18:00)
[2021-03-23] MEDS: Enoxaparin 80 MG/0.8 ML SYR SUBCUT SCH (20:14)
[2021-03-23] MEDS: cefTRIAXone 2 GM ADDV.VIAL 2 GM in NS 0.9% 100 ml BAG 100 ML IV SCH (23:19)
[2021-03-24] MEDS: methylPREDNISolone SOD 40 mg/ml 1 ml VIAL IV SCH ×3 (05:01→21:07)
[2021-03-24 05:22] LABS: ABS Lymphocytes 0.1 10^3/ul (1.0-4.8); ABS Monocytes 0.3 10^3/ul (0-0.8); ABS Neutrophils 12.2 10^3/ul (1.5-7.7); Hematocrit 47 % (42-52); Lymphocyte % 0.8 %; Mean Corpuscular HGB Conc 34 g/dL (31-36); Mean Corpuscular Hemoglobin 34 pg (27-31); Mean Corpuscular Volume 98 fL (80-94); Platelet Count 132 10^3/uL (150-450); Red Blood Count 4.75 10^6 /uL (4.18-5.48); Red Cell Distribution Width 18 % (10-15); White Blood Count 12.7 10^3/uL (3.5-10.8)
[2021-03-24 05:38] LABS: Albumin 2.4 g/dL (3.2-5.2); Albumin/Globulin Ratio 0.7 (1-3); Calcium 7.1 mg/dL (8.6-10.3); Globulin 3.3 g/dL (2-4); Total Bilirubin 0.8 mg/dL (0.2-1.0); Total Protein 5.7 g/dL (6.4-8.9)
[2021-03-24 08:32] LABS: Magnesium 2.2 mg/dL (1.9-2.7); Phosphorus 3.4 mg/dL (2.5-5.0)
[2021-03-24] MEDS ORDERED: Furosemide 40 mg/4 ml IV VIAL ONE (09:32)
[2021-03-24] MEDS ORDERED: Furosemide 40 mg/4 ml IV VIAL IV SLOW PU ONE (09:33)
[2021-03-24] MEDS: Amiodarone 400 mg TAB PO SCH (09:44)
[2021-03-24] MEDS: Enoxaparin 80 MG/0.8 ML SYR SUBCUT SCH (09:49)
[2021-03-24] MEDS ORDERED: Warfarin DAILY REMINDER **NOTE FOLLOW UP SCH (17:00)
[2021-03-25] MEDS: cefTRIAXone 2 GM ADDV.VIAL 2 GM in NS 0.9% 100 ml BAG 100 ML IV SCH ×2 (00:14→22:08)
[2021-03-25 07:44] LABS: ABS Lymphocytes 0.1 10^3/ul (1.0-4.8); ABS Monocytes 0.4 10^3/ul (0-0.8); ABS Neutrophils 11.8 10^3/ul (1.5-7.7); Eosinophil % 0.1 %; Hematocrit 51 % (42-52); Lymphocyte % 0.9 %; Mean Corpuscular HGB Conc 34 g/dL (31-36); Mean Corpuscular Hemoglobin 33 pg (27-31); Mean Corpuscular Volume 99 fL (80-94); Platelet Count 107 10^3/uL (150-450); Red Blood Count 5.12 10^6 /uL (4.18-5.48); Red Cell Distribution Width 17 % (10-15); White Blood Count 12.3 10^3/uL (3.5-10.8)
[2021-03-25 07:59] LABS: Albumin 2.7 g/dL (3.2-5.2); Albumin/Globulin Ratio 0.8 (1-3); Calcium 7.4 mg/dL (8.6-10.3); Globulin 3.5 g/dL (2-4); Potassium 4.2 mmol/L (3.5-5.0); Total Protein 6.2 g/dL (6.4-8.9); eGFR CKD-EPI 86.9 (>60)
[2021-03-25] MEDS: methylPREDNISolone SOD 40 mg/ml 1 ml VIAL IV SCH ×3 (09:35→22:08)
[2021-03-25] MEDS: Amiodarone 400 mg TAB PO SCH (09:35)
[2021-03-26 05:05] LABS: Hematocrit 46 % (42-52); Hemoglobin 15.4 g/dL (14.0-18.0); Mean Corpuscular HGB Conc 34 g/dL (31-36); Mean Corpuscular Hemoglobin 33 pg (27-31); Mean Corpuscular Volume 97 fL (80-94); Red Blood Count 4.69 10^6 /uL (4.18-5.48); Red Cell Distribution Width 17 % (10-15); White Blood Count 11.2 10^3/uL (3.5-10.8)
[2021-03-26 05:20] LABS: Albumin 2.4 g/dL (3.2-5.2); Albumin/Globulin Ratio 0.8 (1-3); Calcium 7.1 mg/dL (8.6-10.3); Globulin 2.9 g/dL (2-4); Magnesium 1.9 mg/dL (1.9-2.7); Potassium 3.9 mmol/L (3.5-5.0); Total Bilirubin 0.8 mg/dL (0.2-1.0); Total Protein 5.3 g/dL (6.4-8.9); eGFR CKD-EPI 97.2 (>60)
[2021-03-26 05:53] LABS: ABS Basophils 0.1 10^3/ul (0-0.2); ABS Lymphocytes 0.1 10^3/ul (1.0-4.8); ABS Monocytes 0.2 10^3/ul (0-0.8); ABS Neutrophils 10.8 10^3/ul (1.5-7.7); Lymphocyte % 0.8 %; Platelet Count 93 10^3/uL (150-450)
[2021-03-26] MEDS ORDERED: Etomidate 40 mg/20 ml (2 MG/ML) 20 ml VIAL (40 mg) ONE (11:03)
[2021-03-26] MEDS ORDERED: Norepinephrine 16MCG/ML BAG NS 4,000 MCG/250 ML BAG IV ONE ×2 (11:05→16:31)
[2021-03-26] MEDS: Amiodarone 400 mg TAB PO SCH (11:13)
[2021-03-26] MEDS ORDERED: Amiodarone IV 150 mg/3 ml VIAL ONE (11:18)
[2021-03-26 11:35] LABS: PO2 Arterial 61 mmHg (80-100)
[2021-03-26 11:37] LABS: PCO2 Arterial 89 mmHg (35-45)
[2021-03-26 14:25] LABS: Urine Bacteria Absent (Absent); Urine Red Blood Cell 3+(>10/hpf) (Absent); Urine Squamous Epithelial Cell Present (Absent); Urine White Blood Cell 2+(11-20/hpf) (Absent)
[2021-03-26 14:28] LABS: Urine Appearance Cloudy; Urine Bilirubin Negative (Negative); Urine Blood 3+ (Negative); Urine Color Yellow; Urine Glucose Negative (Negative); Urine Ketones Negative (Negative); Urine Nitrite Negative (Negative); Urine Protein Negative (Negative); Urine Specific Gravity 1.021 (1.002-1.030); Urine Urobilinogen Negative (Negative)
[2021-03-26 16:23] LABS: Troponin I 0.07 ng/mL (<0.03)
[2021-03-26] MEDS: Chlorhexidine MOUTHWASH 0.12% 15 ML UDC TOPICAL SCH ×2 (16:59→20:15)
[2021-03-26] MEDS: Norepinephrine 16MCG/ML BAG NS 4,000 MCG/250 ML BAG IV SCH ×2 (17:25→23:04)
[2021-03-26] MEDS: Propofol 10 mg/ml 100 ML BTL 100 ML IV SCH (17:25)
[2021-03-26] MEDS: Famotidine IV 10 MG/ML 2 ml VIAL (20 mg) IV SLOW PU SCH (20:15)
[2021-03-26 23:48] LABS: PCO2 Arterial 42 mmHg (35-45); PO2 Arterial 76 mmHg (80-100)
[2021-03-27] MEDS: cefTRIAXone 2 GM ADDV.VIAL 2 GM in NS 0.9% 100 ml BAG 100 ML IV SCH (00:19)
[2021-03-27 00:34] LABS: Troponin I 0.11 ng/mL (<0.03)
[2021-03-27] MEDS: Propofol 10 mg/ml 100 ML BTL 100 ML IV SCH (02:26)
[2021-03-27] MEDS: Chlorhexidine MOUTHWASH 0.12% 15 ML UDC TOPICAL SCH ×3 (02:27→08:57)
[2021-03-27 04:04] LABS: Troponin I 0.12 ng/mL (<0.03)
[2021-03-27] MEDS: Norepinephrine 16MCG/ML BAG NS 4,000 MCG/250 ML BAG IV SCH ×2 (04:34→10:48)
[2021-03-27 06:26] LABS: ABS Lymphocytes 0.2 10^3/ul (1.0-4.8); ABS Monocytes 0.4 10^3/ul (0-0.8); ABS Neutrophils 19.4 10^3/ul (1.5-7.7); Eosinophil % 0.1 %; Hematocrit 45 % (42-52); Hemoglobin 14.9 g/dL (14.0-18.0); Mean Corpuscular HGB Conc 33 g/dL (31-36); Mean Corpuscular Hemoglobin 33 pg (27-31); Mean Corpuscular Volume 99 fL (80-94); Mean Platelet Volume 9.8 fL (7.4-10.4); Platelet Count 100 10^3/uL (150-450); Red Blood Count 4.54 10^6 /uL (4.18-5.48); Red Cell Distribution Width 18 % (10-15)
[2021-03-27 06:33] LABS: ALT 74 U/L (7-52); AST 33 U/L (13-39); Albumin 2.2 g/dL (3.2-5.2); Albumin/Globulin Ratio 0.8 (1-3); Alkaline Phosphatase 80 U/L (35-149); Anion Gap 6 mmol/L (2-11); Blood Urea Nitrogen 46 mg/dL (6-24); CO2 Carbon Dioxide 27 mmol/L (22-32); Calcium 7.1 mg/dL (8.6-10.3); Chloride 107 mmol/L (101-111); Globulin 2.6 g/dL (2-4); Glucose 122 mg/dL (70-100); Magnesium 1.7 mg/dL (1.9-2.7); Phosphorus 2.4 mg/dL (2.5-5.0); Potassium 4.2 mmol/L (3.5-5.0); Sodium 140 mmol/L (135-145); Total Protein 4.8 g/dL (6.4-8.9); eGFR CKD-EPI 87.5 (>60)
[2021-03-27] MEDS ORDERED: Magnesium Sulfate IV 3 GM in NS 0.9% 100 ml BAG 100 ML IVPB ONE (06:36)
[2021-03-27] MEDS: Amiodarone 400 mg TAB NG TUBE SCH (08:57)
[2021-03-27] MEDS: Famotidine IV 10 MG/ML 2 ml VIAL (20 mg) IV SLOW PU SCH ×2 (08:58→21:34)
[2021-03-27] MEDS ORDERED: Potassium Phosphate IV 10 MMOLE in NS 0.9% 250 ml 250 ML IVPB ONE (09:00)
[2021-03-27 13:22] LABS: Troponin I 0.08 ng/mL (<0.03)
[2021-03-27] MEDS ORDERED: Albuterol HFA INHALER 8 gm MDI INH PRN (14:23)
[2021-03-27] MEDS: methylPREDNISolone SOD 40 mg/ml 1 ml VIAL IV SCH (16:04)
[2021-03-27] MEDS ORDERED: Senna TAB 8.6 mg TAB PO PRN (23:25)
[2021-03-28] MEDS: cefTRIAXone 2 GM ADDV.VIAL 2 GM in NS 0.9% 100 ml BAG 100 ML IV SCH (00:15)
[2021-03-28] MEDS: methylPREDNISolone SOD 40 mg/ml 1 ml VIAL IV SCH ×2 (04:00→13:56)
[2021-03-28 05:03] LABS: ABS Basophils 0.1 10^3/ul (0-0.2); ABS Lymphocytes 0.1 10^3/ul (1.0-4.8); ABS Monocytes 0.2 10^3/ul (0-0.8); ABS Neutrophils 10.6 10^3/ul (1.5-7.7); Eosinophil % 0.1 %; Hematocrit 43 % (42-52); Hemoglobin 13.9 g/dL (14.0-18.0); Lymphocyte % 0.8 %; Mean Corpuscular HGB Conc 32 g/dL (31-36); Mean Corpuscular Hemoglobin 32 pg (27-31); Mean Corpuscular Volume 100 fL (80-94); Mean Platelet Volume 9.7 fL (7.4-10.4); Nucleated Red Blood Cells % 0.1; Platelet Count 77 10^3/uL (150-450); Red Blood Count 4.31 10^6 /uL (4.18-5.48); Red Cell Distribution Width 18 % (10-15)
[2021-03-28 05:17] LABS: Albumin 2.1 g/dL (3.2-5.2); Albumin/Globulin Ratio 0.9 (1-3); Calcium 6.8 mg/dL (8.6-10.3); Globulin 2.4 g/dL (2-4); Magnesium 2.2 mg/dL (1.9-2.7); Phosphorus 3.2 mg/dL (2.5-5.0); Total Bilirubin 0.9 mg/dL (0.2-1.0); Total Protein 4.5 g/dL (6.4-8.9)
[2021-03-28] MEDS: Amiodarone 400 mg TAB NG TUBE SCH (07:43)
[2021-03-28] MEDS: Famotidine IV 10 MG/ML 2 ml VIAL (20 mg) IV SLOW PU SCH ×2 (07:44→21:45)
[2021-03-28] MEDS: Digoxin IV 0.5 MG/2 ML AMP (0.25 MG/ML) IV SLOW PU SCH (16:46)
[2021-03-28] MEDS ORDERED: Morphine 2 MG/ML SYRINGE IV PRN (17:24)
[2021-03-29] MEDS: cefTRIAXone 2 GM ADDV.VIAL 2 GM in NS 0.9% 100 ml BAG 100 ML IV SCH (00:07)
[2021-03-29] MEDS: methylPREDNISolone SOD 40 mg/ml 1 ml VIAL IV SCH ×2 (02:19→15:21)
[2021-03-29 05:54] LABS: Hematocrit 40 % (42-52); Hemoglobin 13.2 g/dL (14.0-18.0); Mean Corpuscular HGB Conc 33 g/dL (31-36); Mean Corpuscular Hemoglobin 33 pg (27-31); Mean Corpuscular Volume 98 fL (80-94); Mean Platelet Volume 9.2 fL (7.4-10.4); Platelet Count 93 10^3/uL (150-450); Red Blood Count 4.05 10^6 /uL (4.18-5.48); Red Cell Distribution Width 17 % (10-15)
[2021-03-29] MEDS ORDERED: Levothyroxine 100 MCG/5 ML VIAL IV SCH (06:00)
[2021-03-29] MEDS ORDERED: Amiodarone 400 mg TAB PO SCH (09:00)
[2021-03-29] MEDS: Famotidine IV 10 MG/ML 2 ml VIAL (20 mg) IV SLOW PU SCH ×2 (09:09→22:00)
[2021-03-29] MEDS ORDERED: Lactated Ringers 1000 ml BAG 1,000 ML IV ONE (10:33)
[2021-03-29] MEDS: Digoxin IV 0.5 MG/2 ML AMP (0.25 MG/ML) IV SLOW PU SCH (17:41)
[2021-03-29 22:23] VITALS: BP 64/40
== END 2021-03-29 22:25 | disposition expired | DRG 871 ==
LOC: ED 19:28 → SUATTDRO 23:08 → ICU 23:08 → MED 03-24 15:54 → ICU 03-26 11:03
PROVIDERS: ADMIT Internal Medicine; ATTEND Internal Medicine